=== PATIENT | male | born 1940 | race American Indian/Alaskan Native ===

== ENCOUNTER 2017-04-27 19:36 | Inpatient (IN) | payer MEDICARE ==
--- NOTE | 2017-04-27 20:59 | Emergency Department Report ---
ED Chest Pain HPI - General Chief Complaint: Chest Pain Stated Complaint: CHEST PAIN Time Seen by Provider: 04/27/17 20:55 Source: patient, EMS Mode of arrival: Stretcher Limitations: No Limitations - History of Present Illness Initial Comments: Patient is a 76-year-old male past medical history of coronary artery disease and known aortic aneurysm. Who presents with chest pain that is going on for the last couple of hours. Patient states the pain is 9 on 10. States it's located in the middle his chest it radiates his left arm. It is intermittent mapping makes it better or worse. Patient states achy type of pain. He states nothing he is done has relieved the pain. Patient states that he has seen his vascular surgeon and he supposed to get an operation one has aortic aneurysm approaches 5 cm. Patient states that he has no headache no fevers or chills. - Related Data Home Medications Medication Instructions Recorded Confirmed Last Taken Aspirin [Aspirin BABY CHEW TAB] 81 mg PO QDAY 07/05/13 02/03/14 02/02/14 Atenolol [Tenormin] 100 mg PO DAILY 07/05/13 02/03/14 02/02/14 Atorvastatin [Lipitor] 80 mg PO QHS 07/05/13 02/03/14 02/02/14 Furosemide [Lasix] 20 mg PO DAILY 07/05/13 02/03/14 02/02/14 Isosorbide Mononitrate [Isosorbide 60 mg PO DAILY 07/05/13 02/03/14 02/02/14 Mononitrate ER (IMDUR)] Losartan [Cozaar] 100 mg PO QDAY 07/05/13 02/03/14 02/02/14 Niacin [Niaspan] 500 mg PO DAILY 07/05/13 02/03/14 02/02/14 amLODIPine [Norvasc] 10 mg PO DAILY 07/05/13 02/03/14 02/02/14 Clopidogrel [Plavix] 75 mg PO QDAY 02/03/14 02/03/14 02/02/14 Previous Rx's Medication Instructions Recorded Last Taken Type Budesonide [Pulmicort Respules] 0.5 mg IH Q12HRT #60 nebu 02/09/14 Unknown Rx Famotidine [Pepcid] 40 mg PO QHS #30 tablet 02/09/14 Unknown Rx Ipratropium/Albuterol Sulfate 1 ampul IH Q6HRT #100 ampul.neb 02/09/14 Unknown Rx [DUONEB *Not for PRN Use*] Levofloxacin [Levaquin] 500 mg PO QDAY #7 tablet 02/09/14 Unknown Rx Potassium Chloride 10 meq PO QDAY #30 capsule.er 02/09/14 Unknown Rx Prednisone [predniSONE 10 mg 10 mg PO .TAPER #1 tab.ds.pk 02/09/14 Unknown Rx (6-Day Pack, 21 Tabs)] cloNIDine [Catapres] 0.1 mg PO BID #60 tablet 02/09/14 Unknown Rx Allergies Allergy/AdvReac Type Severity Reaction Status Date / Time No Known Allergies Allergy Verified 04/27/17 19:49 Heart Score - HEART Score History: Moderately suspicious EKG: Normal Age: > 65 Risk factors: > 3 risk factors or hx of atherosclerotic disease Troponin: < normal limit HEART Score: 5 - Critical Actions Critical Actions: 4-6 pts:12-16.6% risk of adverse cardiac event. Should be admitted ED Review of Systems ROS: Stated complaint: CHEST PAIN Other details as noted in HPI Constitutional: malaise Eyes: denies: eye pain, eye discharge, vision change ENT: denies: ear pain, throat pain Respiratory: denies: cough, shortness of breath, wheezing Cardiovascular: chest pain Endocrine: no symptoms reported Gastrointestinal: denies: abdominal pain, nausea, diarrhea Genitourinary: denies: urgency, dysuria Musculoskeletal: denies: back pain, joint swelling, arthralgia Skin: denies: rash, lesions Neurological: denies: headache, weakness, paresthesias Psychiatric: denies: anxiety, depression Hematological/Lymphatic: denies: easy bleeding, easy bruising ED Past Medical Hx - Past Medical History Previous Medical History?: Yes Hx Hypertension: Yes Hx CVA: Yes (2) Hx Heart Attack/AMI: Yes Hx Congestive Heart Failure: Yes Hx Arthritis: Yes 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 - Surgical History Past Surgical History?: Yes Hx Open Heart Surgery: Yes (1995) Hx Appendectomy: Yes Additional Surgical History: bladder surgery - Social History Smoking Status: Never Smoker Substance Use Type: None - Medications Home Medications: Home Medications Medication Instructions Recorded Confirmed Last Taken Type Aspirin [Aspirin BABY CHEW TAB] 81 mg PO QDAY 07/05/13 02/03/14 02/02/14 History Atenolol [Tenormin] 100 mg PO DAILY 07/05/13 02/03/14 02/02/14 History Atorvastatin [Lipitor] 80 mg PO QHS 07/05/13 02/03/14 02/02/14 History Furosemide [Lasix] 20 mg PO DAILY 07/05/13 02/03/14 02/02/14 History Isosorbide Mononitrate [Isosorbide 60 mg PO DAILY 07/05/13 02/03/14 02/02/14 History Mononitrate ER (IMDUR)] Losartan [Cozaar] 100 mg PO QDAY 07/05/13 02/03/14 02/02/14 History Niacin [Niaspan] 500 mg PO DAILY 07/05/13 02/03/14 02/02/14 History amLODIPine [Norvasc] 10 mg PO DAILY 07/05/13 02/03/14 02/02/14 History Clopidogrel [Plavix] 75 mg PO QDAY 02/03/14 02/03/14 02/02/14 History Budesonide [Pulmicort Respules] 0.5 mg IH Q12HRT #60 nebu 02/09/14 Unknown Rx Famotidine [Pepcid] 40 mg PO QHS #30 tablet 02/09/14 Unknown Rx Ipratropium/Albuterol Sulfate 1 ampul IH Q6HRT #100 ampul.neb 02/09/14 Unknown Rx [DUONEB *Not for PRN Use*] Levofloxacin [Levaquin] 500 mg PO QDAY #7 tablet 02/09/14 Unknown Rx Potassium Chloride 10 meq PO QDAY #30 capsule.er 02/09/14 Unknown Rx Prednisone [predniSONE 10 mg 10 mg PO .TAPER #1 tab.ds.pk 02/09/14 Unknown Rx (6-Day Pack, 21 Tabs)] cloNIDine [Catapres] 0.1 mg PO BID #60 tablet 02/09/14 Unknown Rx ED Physical Exam - General Limitations: No Limitations General appearance: alert, in no apparent distress - Head Head exam: Present: atraumatic, normocephalic - Eye Eye exam: Present: normal appearance - ENT ENT exam: Present: mucous membranes moist - Respiratory Respiratory exam: Present: normal lung sounds bilaterally. Absent: respiratory distress - Cardiovascular Cardiovascular Exam: Present: regular rate, systolic murmur - GI/Abdominal GI/Abdominal exam: Present: soft, normal bowel sounds - Rectal Rectal exam: Present: deferred - Extremities Exam Extremities exam: Present: normal inspection - Back Exam Back exam: Present: normal inspection - Neurological Exam Neurological exam: Present: alert, oriented X3 - Psychiatric Psychiatric exam: Present: normal affect, normal mood - Skin Skin exam: Present: warm, dry, intact, normal color. Absent: rash ED Course Vital Signs 04/27/17 04/27/17 04/27/17 19:52 21:38 22:00 Temperature 98.0 F 98.4 F Pulse Rate 106 H 86 70 Respiratory 17 21 14 Rate Blood Pressure 128/81 Blood Pressure 130/88 147/83 [Left] O2 Sat by Pulse 96 99 99 Oximetry 04/27/17 23:00 Temperature 97.8 F Pulse Rate 67 Respiratory 16 Rate Blood Pressure Blood Pressure 130/68 [Left] O2 Sat by Pulse 99 Oximetry - Reevaluation(s) Reevaluation #1: 04/27/17 23:15 Place patient's ultrasound-guided IV line successful. Patient will go to CT to get CT angiogram. - Procedure Description Procedures done: Ultrasound-guided IV indication inability to get vascular [place] V landmarks. IV inserted and left basilic vein for vascular access procedure was successful. Patient gave verbal consent site was cleaned. IV able to flush. At 1:[address] second IV in left antecubital fossa using ultrasound used to attempts. IV access blew. Placement is successful BHARAT score - Bharat Score Age > 65: (1) Yes Aspirin use within the Past 7 Days: (1) Yes 3 or more CAD Risk Factors: (1) Yes 2 or more Angina events in past 24 hrs: (1) Yes Known CAD with more than 50% Stenosis: (1) Yes Elevated Cardiac Markers: (0) No ST Deviation Greater than 0.5mm: (0) No BHARAT Score: 5 ED Medical Decision Making - Lab Data Result diagrams: 04/27/17 23:54 04/27/17 23:54 Laboratory Results - last 24 hr 04/27/17 20:51 WBC 8.2 RBC 4.38 Hgb 13.4 Hct 40.9 MCV 93 MCH 31 MCHC 33 RDW 15.4 H Plt Count 162 Lymph % (Auto) 15.0 [place] % (Auto) 9.0 H Eos % (Auto) 2.3 Baso % (Auto) 0.7 Lymph # 1.2 [place] # 0.7 Eos # 0.2 Baso # 0.1 Seg Neutrophils % 73.0 H Seg Neutrophils # 6.0 Laboratory Results - last 24 hr 04/27/17 04/27/17 04/27/17 20:51 20:51 23:08 WBC 8.2 RBC 4.38 Hgb 13.4 Hct 40.9 MCV 93 MCH 31 MCHC 33 RDW 15.4 H Plt Count 162 Lymph % (Auto) 15.0 [place] % (Auto) 9.0 H Eos % (Auto) 2.3 Baso % (Auto) 0.7 Lymph # 1.2 [place] # 0.7 Eos # 0.2 Baso # 0.1 Seg Neutrophils % 73.0 H Seg Neutrophils # 6.0 Sodium 146 H Potassium 3.5 L Chloride 104.7 Carbon Dioxide 25 Anion Gap 20 BUN 13 Creatinine 1.1 Estimated GFR > 60 BUN/Creatinine Ratio 11.81 Glucose 98 Calcium 8.6 Troponin T < 0.010 < 0.010 04/27/17 04/27/17 23:54 23:54 WBC 8.4 RBC 4.29 Hgb 13.1 Hct 39.9 MCV 93 MCH 31 MCHC 33 RDW 16.0 H Plt Count 150 Lymph % (Auto) 17.2 [place] % (Auto) 9.8 H Eos % (Auto) 2.8 Baso % (Auto) 0.9 Lymph # 1.4 [place] # 0.8 Eos # 0.2 Baso # 0.1 Seg Neutrophils % 69.3 Seg Neutrophils # 5.8 Sodium 145 Potassium 3.8 Chloride 105.7 Carbon Dioxide 27 Anion Gap 16 BUN 14 Creatinine 0.9 Estimated GFR > 60 BUN/Creatinine Ratio 15.55 Glucose 97 Calcium 8.6 Troponin T - EKG Data 04/27/17 21:21 EKG shows normal sinus rhythm left axis deviation no ST segment elevations or T- wave inversions. - Radiology Data Radiology results: pending - Medical Decision Making Medical diagnosis Critical care attestation.: If time is entered above; I have spent that time in minutes in the direct care of this critically ill patient, excluding procedure time. ED Disposition Clinical Impression: CAD (coronary artery disease) Qualifiers: Coronary Disease-Associated Artery/Lesion type: unspecified vessel or lesion type [place] vs. transplanted heart: unspecified whether [place] or transplanted heart Associated angina: with unspecified angina Qualified Code(s): I25.119 - Atherosclerotic heart disease of [place] coronary artery with unspecified angina pectoris Chest pain Qualifiers: Chest pain type: intercostal pain Qualified Code(s): R07.82 - Intercostal pain Disposition: -09 OP ADMIT IP TO THIS HOSP Is pt being admited?: Yes Does the pt Need Aspirin: No Condition: Stable
[2017-04-27] MEDS ORDERED: NACL ONE ×2 (21:09→23:29)
[2017-04-27 21:19] LABS: Basophils % (Auto) 0.7 % (0.0-1.8); Eosinophils % (Auto) 2.3 % (0.0-4.3); Hematocrit 40.9 % (35.5-45.6); Hemoglobin 13.4 gm/dl (11.8-15.2); Mean Corpuscular HGB Conc 33 % (32-34); Mean Corpuscular Hemoglobin 31 pg (28-32); Mean Corpuscular Volume 93 fl (84-94); Platelet Count 162 K/mm3 (140-440); Red Blood Count 4.38 M/mm3 (3.65-5.03); Red Cell Distribution Width 15.4 % (13.2-15.2); White Blood Count 8.2 K/mm3 (4.5-11.0)
[2017-04-27 21:29] LABS: BUN/Creatinine Ratio 11.81; Blood Urea Nitrogen 13 mg/dL (9-20); Calcium 8.6 mg/dL (8.4-10.2); Carbon Dioxide 25 mmol/L (22-30); Glucose 98 mg/dL (75-100)
[2017-04-27 21:30] LABS: Anion Gap 20 mmol/L; Chloride 104.7 mmol/L (98-107); Potassium 3.5 mmol/L (3.6-5.0); Sodium 146 mmol/L (137-145)
--- NOTE | 2017-04-27 23:43 | History and Physical Report ---
History of Present Illness Chief complaint: My chest hurts History of present illness: 76 YO Male with CAD S/P CABG, COPD, CHF, HTN, HLD, Nicotine Dependence, Aortic Aneurysm(4.7cm) presents to ED for evaluation. Pt states that he has experienced chest pain for the past 1day, with worsening symptoms over the past 2 hours. Pain is 9/10, substernal, radiates to his left arm, no exacerbating of alleviating factors. Pt denies fever, chills, back pain, syncope, difficulty breathing, productive cough, recent ill contacts. Patient states that he has seen his vascular surgeon and that his AAA in currently being monitored and pending intervention when aneurysm approaches 5 cm. Past History Past Medical History: CAD, COPD, heart failure, hypertension, hyperlipidemia Past Surgical History: appendectomy, CABG, Other (bladder surgery) Social history: , lives with family, smoking. denies: alcohol abuse, prescription drug abuse, IV drug use Family history: CAD, hypertension Medications and Allergies Allergies Allergy/AdvReac Type Severity Reaction Status Date / Time No Known Allergies Allergy Verified 04/27/17 19:49 Home Medications Medication Instructions Recorded Confirmed Last Taken Type Aspirin [Aspirin BABY CHEW TAB] 81 mg PO QDAY 07/05/13 02/03/14 02/02/14 History Atenolol [Tenormin] 100 mg PO DAILY 07/05/13 02/03/14 02/02/14 History Atorvastatin [Lipitor] 80 mg PO QHS 07/05/13 02/03/14 02/02/14 History Furosemide [Lasix] 20 mg PO DAILY 07/05/13 02/03/14 02/02/14 History Isosorbide Mononitrate [Isosorbide 60 mg PO DAILY 07/05/13 02/03/14 02/02/14 History Mononitrate ER (IMDUR)] Losartan [Cozaar] 100 mg PO QDAY 07/05/13 02/03/14 02/02/14 History Niacin [Niaspan] 500 mg PO DAILY 07/05/13 02/03/14 02/02/14 History amLODIPine [Norvasc] 10 mg PO DAILY 07/05/13 02/03/14 02/02/14 History Clopidogrel [Plavix] 75 mg PO QDAY 02/03/14 02/03/14 02/02/14 History Budesonide [Pulmicort Respules] 0.5 mg IH Q12HRT #60 nebu 02/09/14 Unknown Rx Famotidine [Pepcid] 40 mg PO QHS #30 tablet 02/09/14 Unknown Rx Ipratropium/Albuterol Sulfate 1 ampul IH Q6HRT #100 ampul.neb 02/09/14 Unknown Rx [DUONEB *Not for PRN Use*] Levofloxacin [Levaquin] 500 mg PO QDAY #7 tablet 02/09/14 Unknown Rx Potassium Chloride 10 meq PO QDAY #30 capsule.er 02/09/14 Unknown Rx Prednisone [predniSONE 10 mg 10 mg PO .TAPER #1 tab.ds.pk 02/09/14 Unknown Rx (6-Day Pack, 21 Tabs)] cloNIDine [Catapres] 0.1 mg PO BID #60 tablet 02/09/14 Unknown Rx Review of Systems All systems: negative Constitutional: no weight loss Ears, nose, mouth and throat: no ear pain Cardiovascular: chest pain Respiratory: no cough with sputum Gastrointestinal: no abdominal pain Genitourinary Male: no dysuria, no discharge Rectal: no pain Musculoskeletal: no neck stiffness Integumentary: no rash Neurological: no seizures Psychiatric: no anxiety Endocrine: no cold intolerance Hematologic/Lymphatic: no easy bruising Allergic/Immunologic: no urticaria Exam - Constitutional Vitals: Temp Pulse Resp BP Pulse Ox 98.0 F 86 21 130/88 99 04/27/17 21:38 04/27/17 21:38 04/27/17 21:38 04/27/17 21:38 04/27/17 21:38 General appearance: Present: mild distress - EENT Eyes: Present: PERRL ENT: hearing intact, clear oral mucosa - Neck Neck: Present: supple, normal ROM - Respiratory Respiratory effort: normal Respiratory: bilateral: CTA - Cardiovascular Heart Sounds: Present: S1 & S2. Absent: rub, click - Extremities Extremities: pulses symmetrical, No edema Peripheral Pulses: within normal limits - Abdominal General gastrointestinal: Present: soft, non-tender, non-distended, normal bowel sounds Male genitourinary: Present: normal - Integumentary Integumentary: Present: clear, warm, dry - Musculoskeletal Musculoskeletal: gait normal, strength equal bilaterally - Psychiatric Psychiatric: appropriate mood/affect, intact judgment & insight - Neurologic Neurologic: CNII-XII intact, moves all extremities Results - Labs CBC & Chem 7: 04/27/17 23:54 04/27/17 23:54 Labs: Abnormal lab results 04/27/17 04/27/17 Range/Units 20:51 20:51 RDW 15.4 H (13.2-15.2) % [place] % (Auto) 9.0 H (0.0-7.3) % Seg Neutrophils % 73.0 H (40.0-70.0) % Sodium 146 H (137-145) mmol/L Potassium 3.5 L (3.6-5.0) mmol/L Assessment and Plan - Patient Problems (1) ACS (acute coronary syndrome) Current Visit: Yes Status: Acute Plan to address problem: Serial cardiac enzymes, ekg, telemetry, ddimer, supportive care, echo, stress test, cardiology consulted. (2) CHF (congestive heart failure) Current Visit: Yes Status: Acute Qualifiers: Congestive heart failure type: C Congestive heart failure chronicity: acute on chronic Plan to address problem: Admit to telemetry, afterload reduction, fluid restriction, monitor uop q shift , resume home medication. (3) CAD (coronary artery disease) Current Visit: Yes Status: Acute Qualifiers: Coronary Disease-Associated Artery/Lesion type: C [place] vs. transplanted heart: N Associated angina: with stable angina Plan to address problem: continue medical management, telemetry monitoring, (4) Nicotine dependence Current Visit: Yes Status: Acute Qualifiers: Nicotine product type: N Substance use status: S Plan to address problem: Pt declines to pick quit date, supportive care. Pt counseled (5) AAA (abdominal aortic aneurysm) Current Visit: Yes Status: Acute Qualifiers: Presence of rupture: P Plan to address problem: CTA chest, serial physical exam. (6) HLD (hyperlipidemia) Current Visit: No Status: Chronic Qualifiers: Hyperlipidemia type: H Plan to address problem: continue statin therapy, low cholesterol diet (7) HTN (hypertension) Current Visit: No Status: Chronic Qualifiers: Hypertension type: H Plan to address problem: monitor bp q shift, resume home medication (8) DVT prophylaxis Current Visit: Yes Status: Acute
[2017-04-27] MEDS ORDERED: PROVENTIL IH PRN (23:44)
[2017-04-27] MEDS ORDERED: TYLENOL PO PRN (23:44)
[2017-04-27] MEDS ORDERED: SODIUM CHLORIDE FLUSH SYRINGE 10 ML IV PRN (23:44)
[2017-04-28 00:11] LABS: Basophils % (Auto) 0.9 % (0.0-1.8); Eosinophils % (Auto) 2.8 % (0.0-4.3); Hematocrit 39.9 % (35.5-45.6); Hemoglobin 13.1 gm/dl (11.8-15.2); Mean Corpuscular HGB Conc 33 % (32-34); Mean Corpuscular Hemoglobin 31 pg (28-32); Mean Corpuscular Volume 93 fl (84-94); Platelet Count 150 K/mm3 (140-440); Red Blood Count 4.29 M/mm3 (3.65-5.03); White Blood Count 8.4 K/mm3 (4.5-11.0)
[2017-04-28 00:29] LABS: BUN/Creatinine Ratio 15.55; Blood Urea Nitrogen 14 mg/dL (9-20); Calcium 8.6 mg/dL (8.4-10.2); Carbon Dioxide 27 mmol/L (22-30); Glucose 97 mg/dL (75-100)
[2017-04-28 00:30] LABS: Anion Gap 16 mmol/L; Chloride 105.7 mmol/L (98-107); Potassium 3.8 mmol/L (3.6-5.0); Sodium 145 mmol/L (137-145)
[2017-04-28 02:13] LABS: Cholesterol 132 mg/dL (50-199); HDL Cholesterol 57 mg/dL (40-59); LDL Cholesterol,Direct 56 mg/dL (50-130); Triglycerides 97 mg/dL (2-149)
--- NOTE | 2017-04-28 04:24 | Admit Criteria Form ---
Admission Criteria Documentation: CHEST PAIN Clinical Indications for Admission to Inpatient Care (Place 'X' for any and all applicable criteria): Admission is indicated for chest pain and ANY ONE of the following(1)(2)(3)(4)(5 ): [ ]I. Angina with acute coronary syndrome (Also use Myocardial Infarction or Angina guideline) [ ]II. Hemodynamic instability [ ]III. Angina needing acute intervention as indicated by ALL of the following( 11)(12): [ ]a) Unstable angina is present as indicated by angina that is ANY ONE of the following: [ ]i) New onset [ ]ii) Nocturnal [ ]iii) Prolonged at rest [ ]iv) Progressive [ ]b) Angina warrants acute intervention as indicated by ANY ONE of the following: [ ]i) Recurrent angina (e.g, not responding as previously to treatment) [ ]ii) Angina at rest or with low-level activities despite initial medical therapy [ ]iii) New or presumably new ST-segment depression on ECG [ ]iv) Signs or symptoms of heart failure (eg, dyspnea, pulmonary edema) [ ]v) New or worsening mitral regurgitation [ ]vi) Hemodynamic instability [ ]vii) Dangerous arrhythmia (eg, sustained ventricular tachycardia) [ ]viii) History of percutaneous coronary intervention within 6 months [ ]ix) History of coronary artery bypass graft surgery [ ]x) BHARAT risk score of 2 or greater[A] [ ]xi) History of Diabetes(14) [ ]xii) High-risk cardiac ischemia findings on noninvasive testing (e.g, echocardiogram, treadmill testing, nuclear scan) [ ]xiii) Chronic renal insufficiency (ie, estimated GFR less than 60 mL/min/1.732m) [ ]xiv) Left ventricular ejection fraction less than 40% [ ]IV. Evidence of AR (eg, cardiac biomarkers positive, ST-segment elevation on ECG) also use Myocardial Infarction Criteria Form. [ ]V. Pulmonary edema [ ]. Respiratory distress [ ]VII. Chest pain indicative of serious diagnosis other than coronary artery disease (eg, aortic dissection) [ ]VIII. Contraindications and/or Inappropriate clinical situations for Observational Care in patients with Chest Pain, when ANY ONE of the following is required: [ ]a) Patient with risk factor for pulmonary embolism, acute coronary syndrome and myocardial infarction (18) [ ]b) Patient with Pulmonary embolism require an average LOS of 4.3 days, therefore emergency department observation management is inappropriate 18,23 [ ]c) Painful condition/s in the elderly, have the highest rate of recidivism after emergency department observation management (10.8%) 20,21,22 [ ]d) Elevated cardiac biomarker requires intensive and exhaustive care (19) [X ]IX. General contraindications and/or Inappropriate clinical situations for Observational Care in patients with Chest Pain, when ANY ONE of the following is required: [ X]a) Prediction of prolongation of LOS based on ANY ONE of the following may be considered as a contraindication for observational care 2, 3, 4, 5, 6, 7, 8, 9, 10, 11 [X ]i) Age > 65 yrs. [ ]ii) Patient arriving by ambulance [ ]iii) Patient with high acuity [ ]iv) Patient requiring vital sign monitoring [ X]v) Patient on IV medication [ ]b) Systolic blood pressures 180mmHg 3,12 [ ]c) Patient with altered mental status including delirium and other alteration of consciousness, (3) [ ]d) Patient whose discharge disposition will be to a fdc home or rehabilitation home should not be managed in Emergency Department Observation Unit. CMS rule requires 3 days hospital stay before such placement. 3,13 [ ]e) Patient with failure to thrive due to broad array of etiologies 3,16,17 [ ]f) Inability to ambulate 3,14 Extended stay beyond goal length of stay may be needed for (1)(28): [ ]a) Specific condition diagnosed after evaluation (eg, pulmonary embolism, aortic dissection) [ ]b) Unstable angina [ ]c) Continued suspicion of acute coronary syndrome with inability to complete needed cardiac evaluation (eg, patient clinically unable to undergo stress testing) [ ]d) Myocardial infarction (Contents from ANGINA and CHEST PAIN clinical indications for admission to inpatient care have been integrated in this form) The original [employer] content created by [employer] has been revised. The portions of the content which have been revised are identified through the use of italic text or in bold, and [email or web address] has neither reviewed nor approved the modified material. All other unmodified content is copyright [employer]. Please see references footnoted in the original [facility] edition 2016 Admission Criteria Met: Yes
[2017-04-28] MEDS: PERCOCET 5/325 PO PRN (06:56)
--- NOTE | 2017-04-28 12:18 | Consultation ---
History of Present Illness Consult date: 04/28/17 Requesting physician: ERROL ARTEAGA Consult reason: chest pain History of present illness: The pt is a 76 YO male with a past medical history significant for CAD, s/p CABG x 2 in 1996, CVA x 2 (1973 and 1998), bradycardia s/p PPM (2014), COPD ( wears 2L O2 via NC during the night), HTN, HLP, abdominal aortic aneurysm (most recent CTA showed 4.7 cm aneurysm with an endoleak), EVAR in 2012, PAD, former tobacco smoker (quit 3 years ago). He is previously unknown to our practice. He is regularly followed by Dr. Darlin Mg with [facility]. 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 He describes this pain as an intermittent, nonexertional midsternal and left-sided aching pain which sometimes radiates into his left shoulder and into left arm. Prior to admission, the pain was somewhat relieved by SL nitroglycerin. On the day of admission, the pt reports that he had an episode of chest pain which was not alleviated by 3 SL nitro tabs and thus he called EMS. The pain is sometimes associated with nausea. He denies any palpitations, SOB above baseline, vomiting , diaphoresis, dizziness, or syncope. Echo done 12/2010 showed EF 55-60%, impaired relaxation. LHC done 12/2010 showed patent MOYER graft, graft supplying the coronary territory consisting of the circumflex coronary artery, obtuse marginal branches, left posterior descending artery, and left posterolateral branch has 100 % stenosis at the ostial segment; this graft is a saphenous vein graft; medical therapy was recommended. Past History Past Medical History: CAD, COPD, hypertension, hyperlipidemia, PVD Past Surgical History: appendectomy, CABG, Other (bladder surgery) Social history: , lives with family, smoking (former). denies: alcohol abuse, prescription drug abuse, IV drug use Family history: CAD, hypertension Medications and Allergies Allergies Allergy/AdvReac Type Severity Reaction Status Date / Time No Known Allergies Allergy Verified 04/27/17 19:49 Home Medications Medication Instructions Recorded Confirmed Last Taken Type Aspirin [Aspirin BABY CHEW TAB] 81 mg PO QDAY 07/05/13 04/28/17 1 Day Ago History Atenolol [Tenormin] 100 mg PO DAILY 07/05/13 04/28/17 1 Day Ago History Atorvastatin [Lipitor] 80 mg PO QHS 07/05/13 04/28/17 1 Day Ago History Furosemide [Lasix] 20 mg PO DAILY 07/05/13 04/28/17 1 Day Ago History Isosorbide Mononitrate [Isosorbide 60 mg PO DAILY 07/05/13 04/28/17 1 Day Ago History Mononitrate ER (IMDUR)] Losartan [Cozaar] 100 mg PO QDAY 07/05/13 04/28/17 1 Day Ago History Niacin [Niaspan] 500 mg PO DAILY 07/05/13 04/28/17 1 Day Ago History amLODIPine [Norvasc] 10 mg PO DAILY 07/05/13 04/28/17 2 Days Ago History Clopidogrel [Plavix] 75 mg PO QDAY 02/03/14 04/28/17 1 Day Ago History Budesonide [Pulmicort Respules] 0.5 mg IH Q12HRT #60 nebu 02/09/14 04/28/17 1 Day Ago Rx Famotidine [Pepcid] 40 mg PO QHS #30 tablet 02/09/14 04/28/17 1 Day Ago Rx Ipratropium/Albuterol Sulfate 1 ampul IH Q6HRT #100 ampul.neb 02/09/14 04/28/17 1 Day Ago Rx [DUONEB *Not for PRN Use*] Potassium Chloride 10 meq PO QDAY #30 capsule.er 02/09/14 04/28/17 1 Day Ago Rx cloNIDine [Catapres] 0.1 mg PO BID #60 tablet 02/09/14 04/28/17 2 Days Ago Rx Active Meds: Active Medications Acetaminophen (Tylenol) 650 mg PO Q4H PRN PRN Reason: Pain MILD(1-3)/Fever >100.5/MOTA Last Admin: 04/28/17 00:18 Dose: 650 mg Albuterol (Proventil) 2.5 mg IH Q4HRT PRN PRN Reason: Shortness Of Breath Morphine Sulfate (Morphine) 2 mg IV Q4H PRN PRN Reason: Pain, Moderate (4-6) Oxycodone/Acetaminophen (Percocet 5/325) 1 tab PO Q8H PRN PRN Reason: Pain, Moderate (4-6) Last Admin: 04/28/17 06:56 Dose: 1 tab Sodium Chloride (Sodium Chloride Flush Syringe 10 Ml) 10 ml IV PRN PRN PRN Reason: LINE FLUSH Review of Systems Constitutional: no weight loss, no weight gain, no fever, no chills, no sweats Ears, nose, mouth and throat: no ear pain, no nose pain, no sinus pressure, no sinus pain Cardiovascular: chest pain, shortness of breath (chronic), dyspnea on exertion ( chronic), high blood pressure, no orthopnea, no palpitations, no rapid/ irregular heart beat, no edema, no syncope, no lightheadedness, no paroxysmal nocturnal dyspnea, no leg edema Respiratory: shortness of breath, dyspnea on exertion, no cough, no congestion, no wheezing, no pain on inspiration Gastrointestinal: nausea, no abdominal pain, no vomiting, no diarrhea, no constipation, no change in bowel habits Genitourinary Male: no dysuria, no hematuria, no flank pain, no discharge, no urinary frequency, no urinary hesitancy Musculoskeletal: no neck stiffness, no neck pain, no shooting arm pain, no arm numbness/tingling, no low back pain, no shooting leg pain, no leg numbness/ tingling, no redness of joints Integumentary: no rash, no pruritis, no redness, no sores, no wounds Neurological: no head injury, no paralysis, no weakness, no parathesias, no numbness, no tingling, no seizures, no syncope Psychiatric: no anxiety Endocrine: no cold intolerance, no heat intolerance Hematologic/Lymphatic: no easy bruising, no easy bleeding, no lymphadenopathy Allergic/Immunologic: no urticaria, no wheezing Physical Examination Vital Signs Pulse Resp BP Pulse Ox 106 H 17 128/81 96 04/27/17 19:52 04/27/17 19:52 04/27/17 19:52 04/27/17 19:52 General appearance: no acute distress HEENT: Positive: PERRL, Normocephaly, Mucus Membranes Moist Neck: Positive: neck supple, trachea midline Cardiac: Positive: Reg Rate and Rhythm, S1/S2 Lungs: Positive: Decreased Breath Sounds, Wheezes (fine expiratory), Other ( prolonged expiration) Neuro: Positive: Grossly Intact, Cranial Nerve 2-12 Intact Abdomen: Positive: Unremarkable, Soft, Active Bowel Sounds. Negative: Tender Skin: Positive: Clear. Negative: Rash, Wound Musculoskeletal: No Fluid Collection, No Pain, Normal Range of Motion Extremities: Absent: edema Results 04/27/17 23:54 04/27/17 23:54 Lipids 04/27/17 Range/Units 23:54 Triglycerides 97 (2-149) mg/dL Cholesterol 132 (50-199) mg/dL HDL Cholesterol 57 (40-59) mg/dL Cholesterol/HDL Ratio 2.31 % CBC 04/27/17 Range/Units 23:54 WBC 8.4 (4.5-11.0) K/mm3 RBC 4.29 (3.65-5.03) M/mm3 Hgb 13.1 (11.8-15.2) gm/dl Hct 39.9 (35.5-45.6) % Plt Count 150 (140-440) K/mm3 Lymph # 1.4 (1.2-5.4) K/mm3 [place] # 0.8 (0.0-0.8) K/mm3 Eos # 0.2 (0.0-0.4) K/mm3 Baso # 0.1 (0.0-0.1) K/mm3 Comprehensive Metabolic Panel 04/27/17 Range/Units 23:54 Sodium 145 (137-145) mmol/L Potassium 3.8 (3.6-5.0) mmol/L Chloride 105.7 (98-107) mmol/L Carbon Dioxide 27 (22-30) mmol/L BUN 14 (9-20) mg/dL Creatinine 0.9 (0.8-1.5) mg/dL Glucose 97 (75-100) mg/dL Calcium 8.6 (8.4-10.2) mg/dL - Imaging and Cardiology Echo: pending, report reviewed Cardiac cath: report reviewed EKG: report reviewed, image reviewed EKG interpretations - Telemetry EKG Rhythm: Sinus Rhythm - EKG Sinus rhythms and dysrhythmias: sinus rhythm Assessment and Plan Assessment: Chest pain, atypical - ECG with NAF; Sia negative for AMI. CAD, s/p CABG x 2 in 1996 PPM in situ Abdominal aortic aneurysm - most recent CTA showed 4.7 cm aneurysm with an endoleak; s/p EVAR in 2012 HTN HLP COPD H/o CVA PAD Plan: Obtain echo. Await chest and abdomen CTA once IV access is obtained. Resume home ASA 81, lipitor, norvasc, lasix, & imdur. Recommend resuming home plavix pending no surgical intervention of abdominal aortic aneurysm is required. 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 Will resume Toprol XL (as substitute for bystolic as bystolic is not on formulary at this facility). Plan for lexiscan MPI stress test in AM pending pt remains clinically and hemodynamically stable overnight. NPO after MN. Cont tele. Assessment and plan reviewed with pt and pt's at bedside. The patient has been seen in conjunction with Dr. Galaviz who agrees with the assessment and plan of care.
--- NOTE | 2017-04-28 15:27 | Progress Note ---
Assessment and Plan Assessment and plan: 76 YO Male with CAD S/P CABG, COPD, CHF, HTN, HLD, Nicotine Dependence, Aortic Aneurysm(4.7cm) presents to ED for evaluation. Pt states that he has experienced chest pain for the past 1day, with worsening symptoms over the past 2 hours. Pain is 9/10, substernal, radiates to his left arm, no exacerbating of alleviating factors. Pt denies fever, chills, back pain, syncope, difficulty breathing, productive cough, recent ill contacts. Patient states that he has seen his vascular surgeon and that his AAA in currently being monitored and pending intervention when aneurysm approaches 5 cm. * Atypical chest pain * Nicotine dependence * Dyslipidemia * CAD, s/p CABG x 2 in 1996 * Chronic hypoxemia * PPM in situ * Abdominal aortic aneurysm - most recent CTA showed 4.7 cm aneurysm with an endoleak; s/p EVAR in 2012 * HTN * HLCOPD * H/o CVA * PAD Plan: * Continue supportive care, oxygen- no increase need noted * Stress test in AM, Echocardiogram pending * Await CTA abdomen and Pelvis. IV access established * Vascular consult * Cardiology input * Continue home meds ASA 81, lipitor, Toprol xl, norvasc, lasix, & imdur. * Plan discussed with rag sorter * Plan discussed with patient in detail. * DVT/GI prophylaxis History Interval history: Patient seen and examined this morning and reports some improvement in the chest pain. Reports chest pain has been on and off for about 2 weeks now. Although I'll follow questioning states that it has been going in for months but got worse in the last 2 weeks. Today he denies any aggravating or alleviating factors. Hospitalist Physical - Physical exam Narrative exam: VITAL SIGNS: Reviewed. GENERAL: The patient appeared chronically ill appearing otherwise normally developed. Vital signs as documented. HEAD: No signs of head trauma. EYES: Pupils are equal. Extraocular motions intact. EARS: Hearing grossly intact. MOUTH: Oropharynx is normal. NECK: No adenopathy, no JVD. CHEST: Chest with diminished breath sounds bilaterally. No wheezes, rales, or rhonchi. CARDIAC: Regular rate and rhythm. S1 and S2, without murmurs, gallops, or rubs. VASCULAR: No Edema. Peripheral pulses normal and equal in all extremities. ABDOMEN: Soft, without detectable tenderness. No sign of distention. No rebound or guarding, and no masses palpated. Bowel Sounds normal. MUSCULOSKELETAL: Good range of motion of all major joints. Extremities without clubbing, cyanosis or edema. NEUROLOGIC EXAM: Alert and oriented x 3. No focal sensory or strength deficits. Speech normal. Follows commands. PSYCHIATRIC: Mood normal. SKIN: No rash or lesions. - Constitutional Vitals: Temp Pulse Resp BP Pulse Ox 98.2 F 70 20 140/84 99 04/28/17 11:40 04/28/17 11:50 04/28/17 11:50 04/28/17 11:40 04/28/17 11:50 General appearance: Present: no acute distress Results - Labs CBC & Chem 7: 04/27/17 23:54 04/27/17 23:54 Labs: Laboratory Last Values WBC 8.4 K/mm3 (4.5-11.0) 04/27/17 23:54 RBC 4.29 M/mm3 (3.65-5.03) 04/27/17 23:54 Hgb 13.1 gm/dl (11.8-15.2) 04/27/17 23:54 Hct 39.9 % (35.5-45.6) 04/27/17 23:54 MCV 93 fl (84-94) 04/27/17 23:54 MCH 31 pg (28-32) 04/27/17 23:54 MCHC 33 % (32-34) 04/27/17 23:54 RDW 16.0 % (13.2-15.2) H 04/27/17 23:54 Plt Count 150 K/mm3 (140-440) 04/27/17 23:54 Lymph % (Auto) 17.2 % (13.4-35.0) 04/27/17 23:54 [place] % (Auto) 9.8 % (0.0-7.3) H 04/27/17 23:54 Eos % (Auto) 2.8 % (0.0-4.3) 04/27/17 23:54 Baso % (Auto) 0.9 % (0.0-1.8) 04/27/17 23:54 Lymph # 1.4 K/mm3 (1.2-5.4) 04/27/17 23:54 [place] # 0.8 K/mm3 (0.0-0.8) 04/27/17 23:54 Eos # 0.2 K/mm3 (0.0-0.4) 04/27/17 23:54 Baso # 0.1 K/mm3 (0.0-0.1) 04/27/17 23:54 Seg Neutrophils % 69.3 % (40.0-70.0) 04/27/17 23:54 Seg Neutrophils # 5.8 K/mm3 (1.8-7.7) 04/27/17 23:54 Sodium 145 mmol/L (137-145) 04/27/17 23:54 Potassium 3.8 mmol/L (3.6-5.0) 04/27/17 23:54 Chloride 105.7 mmol/L (98-107) 04/27/17 23:54 Carbon Dioxide 27 mmol/L (22-30) 04/27/17 23:54 Anion Gap 16 mmol/L 04/27/17 23:54 BUN 14 mg/dL (9-20) 04/27/17 23:54 Creatinine 0.9 mg/dL (0.8-1.5) 04/27/17 23:54 Estimated GFR > 60 ml/min 04/27/17 23:54 BUN/Creatinine Ratio 15.55 % 04/27/17 23:54 Glucose 97 mg/dL (75-100) 04/27/17 23:54 Calcium 8.6 mg/dL (8.4-10.2) 04/27/17 23:54 Troponin T < 0.010 ng/mL (0.00-0.029) 04/28/17 05:54 Triglycerides 97 mg/dL (2-149) 04/27/17 23:54 Cholesterol 132 mg/dL (50-199) 04/27/17 23:54 LDL Cholesterol Direct 56 mg/dL (50-130) 04/27/17 23:54 HDL Cholesterol 57 mg/dL (40-59) 04/27/17 23:54 Cholesterol/HDL Ratio 2.31 % 04/27/17 23:54
--- NOTE | 2017-04-28 15:33 | Event Note ---
Date: 04/28/17 Consulted for aortic aneurysm. CTA pending. Will see the pt once the studies have been completed.
[2017-04-28] MEDS ORDERED: NACL ONE (15:39)
--- NOTE | 2017-04-28 16:55 | Cat Scan Report ---
CTA chest: Patient with known abdominal aortic aneurysm with endograft leakage. Previous exam at [place] approximately one year ago. No treatment. Also complains of slightly worsening chest pain over the past year. The patient does have long-standing hypertension. Following injection of IV contrast transverse sections are obtained through the chest and portions of the abdomen with coronal and sagittal 2-D reformatted images. Both lobes of the thyroid gland are diffusely inhomogeneous with probable nodules. There is mild shotty adenopathy in the mediastinum. No hilar adenopathy. The central airways are patent. No endobronchial lesions identified in the visualized airways. The lungs are clear of any obvious nodule or infiltrate in the pleural surfaces are smooth. The pulmonary vessels are well-opacified. There are no intraluminal filling defects identified. The thoracic aorta is well-opacified. The ascending aorta measures 4.2 cm in diameter which is abnormal. The descending aorta measures 3 cm which is at the upper limits of normal. The celiac and SMA arteries are both the aneurysm patent. The single renal arteries on each side are also patent. The upper stent inserts at the level of the renal arteries with bilateral insertions at the distal common iliac arteries. The aneurysm extends to just below the renal arteries to the bifurcation. Just above the bifurcation there is an endoleak and the transverse diameter of the aorta at this level may be as large as 5.3 cm. There are numerous bilateral large renal cysts. The largest cyst is in the right kidney measuring 7.7 cm and on the left the largest is 5.2 cm. Both kidneys function with no obvious obstruction. Impressions: 1. Patulous ascending and descending thoracic aorta which are in the aneurysmal range. 2. Leaking endograft. The maximum size of the abdominal aorta may have enlarged since prior exam where the patient describes it as measuring 3.7 cm. 3. Large bilateral renal cysts. The patient is unaware of this finding previously.
[2017-04-28] MEDS: BABY ASPIRIN PO SCH (18:41)
[2017-04-28] MEDS: NORVASC PO SCH (18:42)
[2017-04-28] MEDS: LASIX PO SCH (18:42)
[2017-04-28] MEDS: IMDUR PO SCH (18:42)
[2017-04-28] MEDS: TOPROL XL PO SCH (22:08)
[2017-04-28] MEDS: MORPHINE IV PRN (22:10)
[2017-04-29] MEDS: MORPHINE IV PRN (07:38)
[2017-04-29 08:52] LABS: Anion Gap 18 mmol/L; BUN/Creatinine Ratio 11.66; Blood Urea Nitrogen 14 mg/dL (9-20); Calcium 8.2 mg/dL (8.4-10.2); Carbon Dioxide 23 mmol/L (22-30); Chloride 106.5 mmol/L (98-107); Glucose 103 mg/dL (75-100); Potassium 5.3 mmol/L (3.6-5.0); Sodium 142 mmol/L (137-145)
[2017-04-29] MEDS ORDERED: LEXISCAN IV ONE ×2 (09:57→10:00)
--- NOTE | 2017-04-29 11:35 | Progress Note ---
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 transplanted heart: craig heart Associated angina: with stable angina Qualified Code(s): I25.118 - Atherosclerotic heart disease of craig coronary artery with other forms of angina pectoris (3) Chest pain Current Visit: Yes Status: Chronic Qualifiers: Chest pain type: intercostal pain Ischemic chest pain type: I Qualified Code(s): R07.82 - Intercostal pain (4) HLD (hyperlipidemia) Current Visit: No Status: Chronic Qualifiers: Hyperlipidemia type: H (5) HTN (hypertension) Current Visit: No Status: Chronic Qualifiers: Hypertension type: essential hypertension Qualified Code(s): I10 - Essential (primary) hypertension (6) Hx of CABG Current Visit: No Status: Chronic (7) Pulmonary hypertension Current Visit: No Status: Chronic Subjective Date of service: 04/29/17 Principal diagnosis: chest pain Interval history: pt has no chest pain today Objective Vital Signs Temp Pulse Pulse Resp BP Pulse Ox 04/29/17 10:00 60 20 98 04/29/17 08:30 97.5 F L 60 20 121/66 98 04/29/17 08:07 60 04/29/17 05:47 97.6 F 64 19 100/66 96 04/29/17 02:00 74 04/29/17 00:58 97.4 F L 68 21 113/73 98 04/28/17 22:08 72 159/90 04/28/17 22:00 99 04/28/17 21:09 98 04/28/17 20:35 98.1 F 72 21 159/90 98 04/28/17 18:42 70 140/84 04/28/17 18:00 72 04/28/17 16:10 98.3 F 91 H 18 149/89 100 04/28/17 11:50 70 20 99 04/28/17 11:40 98.2 F 70 18 140/84 98 - Physical Examination General: No Apparent Distress HEENT: Positive: PERRL, Normocephaly, Mucus Membranes Moist Neck: Positive: neck supple, trachea midline Cardiac: Positive: Reg Rate and Rhythm Lungs: Positive: clear to auscultation Neuro: Positive: Grossly Intact, Cranial Nerve 2-12 Intact Abdomen: Positive: Unremarkable, Soft, Active Bowel Sounds. Negative: Tender Skin: Positive: Clear. Negative: Rash, Wound Musculoskeletal: No Fluid Collection, No Pain, Normal Range of Motion Extremities: Absent: edema - Labs and Meds Comprehensive Metabolic Panel 04/29/17 Range/Units 08:23 Sodium 142 (137-145) mmol/L Potassium 5.3 H D (3.6-5.0) mmol/L Chloride 106.5 (98-107) mmol/L Carbon Dioxide 23 (22-30) mmol/L BUN 14 (9-20) mg/dL Creatinine 1.2 (0.8-1.5) mg/dL Glucose 103 H (75-100) mg/dL Calcium 8.2 L (8.4-10.2) mg/dL - Imaging and Cardiology EKG: report reviewed, image reviewed Pharmacologic stress test: report reviewed (normal myocardial perfusion no ischemia normal lv function) Echo: pending, report reviewed Cardiac cath: report reviewed - Telemetry EKG Rhythm: Sinus Rhythm - EKG Sinus rhythms and dysrhythmias: sinus rhythm
--- NOTE | 2017-04-29 11:37 | Discharge Summary ---
Providers - Providers Date of Admission: 04/27/17 23:44 Attending physician: MADYSON ADAMS MD 04/28/17 14:10 Consult to Physician [CONS] Routine Consulting Provider: ANDRZEJ TORRES Reason For Exam: aortic anursysm Place consult to:: robert Notified:: misa Was contact made?: Yes Time called:: 15:13 Primary care physician: SPECIAL PROCEDURES TECHNOLOGIST Hospitalization Reason for admission: chest pain Condition: Stable Hospital course: 76 YO Male with CAD S/P CABG, COPD, CHF, HTN, HLD, Nicotine Dependence, Aortic Aneurysm(4.7cm) presents to ED for evaluation. Pt states that he has experienced chest pain for the past 1day, with worsening symptoms over the past 2 hours. Pain is 9/10, substernal, radiates to his left arm, no exacerbating of alleviating factors. Pt denies fever, chills, back pain, syncope, difficulty breathing, productive cough, recent ill contacts. Patient states that he has seen his vascular surgeon and that his AAA in currently being monitored and pending intervention when aneurysm approaches 5 cm. Patient was seen and evaluated by cardiology, stress was done and negative. CTA chest showed Anssymal sac now 5.3cm, vascular did see the pateint and recommend patient should follow with them outpatient or with his [place] surgeon. This was conveyed to the patient and the need to contact the surgeon immediately on discharge and not wait till June. Patient verbalized understanding. He is chest pain free at this time. Again he advised that the chest pain has been waxing and wanning for the past two years, I have also recommended an outpt GI evaluation to r/o Malcolm, considering patients hx. * Atypical chest pain likely costochondritis * Nicotine dependence * Dyslipidemia * CAD, s/p CABG x 2 in 1996 * Chronic hypoxemia * PPM in situ * Abdominal aortic aneurysm * HTN * HLCOPD * H/o CVA * PAD Disposition: [id number] HOME UNDER HOME [facility] Time spent for discharge: 35 mins Core Measure Documentation - Palliative Care Palliative Care/ Comfort Measures: Not Applicable - Core Measures Any of the following diagnoses?: none - VTE Discharge Requirements Deep Vein Thrombosis/Pulmonary Embolism Present on Admission: No Exam - Physical Exam Narrative exam: VITAL SIGNS: Reviewed. GENERAL: The patient appeared chronically ill appearing otherwise normally developed. Vital signs as documented. HEAD: No signs of head trauma. EYES: Pupils are equal. Extraocular motions intact. EARS: Hearing grossly intact. MOUTH: Oropharynx is normal. NECK: No adenopathy, no JVD. CHEST: Chest with diminished breath sounds bilaterally. No wheezes, rales, or rhonchi. CARDIAC: Regular rate and rhythm. S1 and S2, without murmurs, gallops, or rubs. VASCULAR: No Edema. Peripheral pulses normal and equal in all extremities. ABDOMEN: Soft, without detectable tenderness. No sign of distention. No rebound or guarding, and no masses palpated. Bowel Sounds normal. MUSCULOSKELETAL: Good range of motion of all major joints. Extremities without clubbing, cyanosis or edema. NEUROLOGIC EXAM: Alert and oriented x 3. No focal sensory or strength deficits. Speech normal. Follows commands. PSYCHIATRIC: Mood normal. SKIN: No rash or lesions. - Constitutional Vitals: Temp Pulse Resp BP Pulse Ox 97.5 F L 60 20 121/66 98 04/29/17 08:30 04/29/17 10:00 04/29/17 10:00 04/29/17 08:30 04/29/17 10:00 Plan Activity: advance as tolerated, fall precautions Diet: low fat Special Instructions: record daily BP diary, other (continue Home dose Bystolic as ordered by primary care physician) Additional Instructions: follow with vascular surgeon Follow up with: PRIMARY CAREMD [Primary Care Provider] - 3-5 Days MYRON RUELAS MD [Staff Physician] - 7 Days Prescriptions: traMADol [Ultram 50 MG tab] 50 mg PO Q6H PRN #10 tablet PRN Reason: Pain, Moderate (4-6)
[2017-04-29] MEDS: IMDUR PO SCH (11:45)
[2017-04-29] MEDS: BABY ASPIRIN PO SCH (11:45)
[2017-04-29] MEDS: LASIX PO SCH (11:45)
[2017-04-29] MEDS: NORVASC PO SCH (11:45)
[2017-04-29] MEDS: TOPROL XL PO SCH (11:46)
[2017-04-29] MEDS ORDERED: ULTRAM PO PRN (12:30)
--- NOTE | 2017-04-29 14:59 | Consultation ---
History of Present Illness - Reason for Consult Consult date: 04/29/17 Requesting physician: MADYSON ADAMS - History of Present Illness This patient is a 76-year-old male that was admitted via the emergency room on 04/27/2017 due to a 2 day h/o chest pain. A Cardiology consult was placed, and a chest pain workup initiated. The Patient is status post a endovascular repair of an abdominal aortic aneurysm approximately [address] De La Rosa at [facility]. He was subsequently noted to have an endoleak. Dr. De La Rosa sent him to a vascular surgeon at [facility], Dr Porter, for further workup. Reportedly an arteriogram was performed. The patient states that he was told that the aneurysm would need to be repaired open, however this would be delayed until the aneurysm was greater than 5 cm. It was 4.7 cm at that time (as per the pt report). The patient has a follow-up visit scheduled for June 2017. Following this admission a CT scan of the chest was ordered. This revealed evidence of a stent graft repair of a previous abdominal aortic aneurysm. A Vascular surgery consult has been requested to further evaluate. Past History Past Medical History: CAD, COPD, DVT, hypertension, hyperlipidemia, PVD Past Surgical History: appendectomy, CABG, Other (bladder surgery, EVAR, Arteriogram due to an Endoleak of the previously stent/graph repaired AAA, IVC Filter) Social history: , lives with family. denies: smoking (quit smoking ~ 3yrs ago), alcohol abuse, prescription drug abuse, IV drug use Family history: CAD, cancer (leukemia), hypertension Medications and Allergies Allergies Allergy/AdvReac Type Severity Reaction Status Date / Time No Known Allergies Allergy Verified 04/27/17 19:49 Home Medications Medication Instructions Recorded Confirmed Last Taken Type Aspirin [Aspirin BABY CHEW TAB] 81 mg PO QDAY 07/05/13 04/28/17 1 Day Ago History Atorvastatin [Lipitor] 80 mg PO QHS 07/05/13 04/28/17 1 Day Ago History Furosemide [Lasix] 20 mg PO DAILY 07/05/13 04/28/17 1 Day Ago History Isosorbide Mononitrate [Isosorbide 60 mg PO DAILY 07/05/13 04/28/17 1 Day Ago History Mononitrate ER (IMDUR)] Losartan [Cozaar] 100 mg PO QDAY 07/05/13 04/28/17 1 Day Ago History Niacin [Niaspan] 500 mg PO DAILY 07/05/13 04/28/17 1 Day Ago History amLODIPine [Norvasc] 10 mg PO DAILY 07/05/13 04/28/17 2 Days Ago History Clopidogrel [Plavix] 75 mg PO QDAY 02/03/14 04/28/17 1 Day Ago History Budesonide [Pulmicort Respules] 0.5 mg IH Q12HRT #60 nebu 02/09/14 04/28/17 1 Day Ago Rx Famotidine [Pepcid] 40 mg PO QHS #30 tablet 02/09/14 04/28/17 1 Day Ago Rx Ipratropium/Albuterol Sulfate 1 ampul IH Q6HRT #100 ampul.neb 02/09/14 04/28/17 1 Day Ago Rx [DUONEB *Not for PRN Use*] Potassium Chloride 10 meq PO QDAY #30 capsule.er 02/09/14 04/28/17 1 Day Ago Rx cloNIDine [Catapres] 0.1 mg PO BID #60 tablet 02/09/14 04/28/17 2 Days Ago Rx traMADol [Ultram 50 MG tab] 50 mg PO Q6H PRN #10 tablet 04/29/17 Unknown Rx Active Meds: Active Medications Acetaminophen (Tylenol) 650 mg PO Q4H PRN PRN Reason: Pain MILD(1-3)/Fever >100.5/MOTA Last Admin: 04/28/17 00:18 Dose: 650 mg Albuterol (Proventil) 2.5 mg IH Q4HRT PRN PRN Reason: Shortness Of Breath Amlodipine Besylate (Norvasc) 10 mg PO DAILY [facility] Last Admin: 04/29/17 11:45 Dose: 10 mg Aspirin (Baby Aspirin) 81 mg PO QDAY [facility] Last Admin: 04/29/17 11:45 Dose: 81 mg Atorvastatin Calcium (Lipitor) 80 mg PO QHS [facility] Last Admin: 04/28/17 22:08 Dose: 80 mg Furosemide (Lasix) 20 mg PO DAILY [facility] Last Admin: 04/29/17 11:45 Dose: 20 mg Isosorbide Mononitrate (Imdur) 60 mg PO DAILY [facility] Last Admin: 04/29/17 11:45 Dose: 60 mg Metoprolol Succinate (Toprol Xl) 25 mg PO QDAY [facility] Last Admin: 04/29/17 11:46 Dose: 25 mg Morphine Sulfate (Morphine) 2 mg IV Q4H PRN PRN Reason: Pain, Moderate (4-6) Last Admin: 04/29/17 07:38 Dose: 2 mg Oxycodone/Acetaminophen (Percocet 5/325) 1 tab PO Q8H PRN PRN Reason: Pain, Moderate (4-6) Last Admin: 04/28/17 06:56 Dose: 1 tab Sodium Chloride (Sodium Chloride Flush Syringe 10 Ml) 10 ml IV PRN PRN PRN Reason: LINE FLUSH Tramadol HCl (Ultram) 50 mg PO Q6H PRN PRN Reason: Pain, Moderate (4-6) Review of Systems All systems: negative Exam - Constitutional Vitals: Temp Pulse Resp BP Pulse Ox 98.0 F 60 18 119/71 100 04/29/17 11:45 04/29/17 11:45 04/29/17 11:45 04/29/17 11:45 04/29/17 11:45 General appearance: Present: no acute distress - EENT Eyes: Present: EOM intact ENT: hearing intact - Neck Neck: Present: supple - Respiratory Respiratory effort: normal - Extremities Extremities: no ischemia, normal temperature - Abdominal General gastrointestinal: Present: soft (protuberant), non-tender (to shallow or deep palpation, no palp abd pulsations appreciated) - Psychiatric Psychiatric: appropriate mood/affect, intact judgment & insight, cooperative - Neurologic Neurologic: no focal deficits Results - Labs CBC & Chem 7: 04/27/17 23:54 04/29/17 08:23 Labs: Abnormal lab results 04/29/17 Range/Units 08:23 Potassium 5.3 H D (3.6-5.0) mmol/L Glucose 103 H (75-100) mg/dL Calcium 8.2 L (8.4-10.2) mg/dL Assessment and Plan Pt was evaluated. I do not believe his presenting complaints of chest pain are related to his AAA. However, It will need further work up (not necessarily during this admission). The CTA is a sub-optimal study. He will likely need an arteriogram to assess the origin of the endoleak. The CT report suggest the maximum diameter of the Aneurysm sac is 5.3 which has increase from previous reports of 4.7cm. The pt can f/u with our office as an outpt or with his [place] surgeon (although he should call for appt now as opposed to waiting until Jun). - Patient Problems (1) Status post abdominal aortic aneurysm (AAA) repair Status: Acute (2) Chest pain Status: Chronic Qualifiers: Chest pain type: intercostal pain Ischemic chest pain type: I Qualified Code(s): R07.82 - Intercostal pain (3) CAD (coronary artery disease) Status: Chronic Qualifiers: Coronary Disease-Associated Artery/Lesion type: unspecified vessel or lesion type [place] vs. transplanted heart: unspecified whether [place] or transplanted heart Associated angina: with unspecified angina Qualified Code (s): I25.119 - Atherosclerotic heart disease of [place] coronary artery with unspecified angina pectoris (4) HTN (hypertension) Status: Chronic Qualifiers: Hypertension type: essential hypertension Qualified Code(s): I10 - Essential (primary) hypertension (5) Hx of CABG Status: Chronic
[2017-04-29] MEDS: PERCOCET 5/325 PO PRN (16:02)
[2017-04-29 18:19] VITALS: BP 109/66
--- NOTE | 2017-04-30 00:47 | Treadmill Report ---
Cardiac nuclear perfusion study done on 04/29/2017. REASON FOR STUDY: Chest pain. IMAGING PROTOCOL: The patient received 10 mCi of Technetium 99m Tetrofosmin for resting image and 28 mCi of Technetium 99m Tetrofosmin for stress imaging. The imaging for the whole procedure was completed 30-90 minutes following the initial injection of Technetium 99m tetrofosmin. The SPECT imaging in the 180 degree arc was performed in the right anterior oblique projection. Computerized reconstruction of the images was performed for analysis. IMAGING RESULTS: Normal cavity size from stress to rest. Normal distribution of radionuclide in the anterior, inferior, septal, and apical regions. Gated SPECT 61% with no wall motion abnormalities. The patient infused Lexiscan with no EKG changes. SUMMARY: 1. Negative Lexiscan EKG. 2. Normal rest and stress myocardial perfusion scan. No significant stress ischemia. No wall motion abnormality. Gated SPECT 61%. JOB# [id number] ALIN/MALICK
== END 2017-04-29 20:10 | disposition home health service (06) | DRG 206 ==
LOC: ED 19:36 → 4A 23:44
PROVIDERS: ADMIT Internal Medicine; ATTEND Internal Medicine
DX: M94.0 Chondrocostal junction syndrome [Tietze] (principal); I24.9 Acute ischemic heart disease, unspecified; I71.4 Abdominal aortic aneurysm, without rupture; I25.2 Old myocardial infarction; I11.0 Hypertensive heart disease with heart failure; M19.90 Unspecified osteoarthritis, unspecified site; I71.9 Aortic aneurysm of unspecified site, without rupture; I50.9 Heart failure, unspecified; J44.9 Chronic obstructive pulmonary disease, unspecified; E78.5 Hyperlipidemia, unspecified; F17.210 Nicotine dependence, cigarettes, uncomplicated; I73.9 Peripheral vascular disease, unspecified; R09.02 Hypoxemia; I25.118 Atherosclerotic heart disease of native coronary artery with other forms of angina pectoris; I27.2 Other secondary pulmonary hypertension; Z79.82 Long term (current) use of aspirin; Z86.73 Personal history of transient ischemic attack (TIA), and cerebral infarction without residual deficits; Z90.49 Acquired absence of other specified parts of digestive tract; Z95.1 Presence of aortocoronary bypass graft; Z82.49 Family history of ischemic heart disease and other diseases of the circulatory system; Z95.0 Presence of cardiac pacemaker
CPT/HCPCS: 36415; 71275; 74175; 78452; 80048; 80061; 84484; 85025; 93005; 93010; 93017; 93306; 94760; A9270-GY; A9502; J2270; J2785; Q9967

== ENCOUNTER 2019-10-19 09:16 | Outpatient (CLI) | payer MEDICARE ==
--- NOTE | 2019-10-19 11:03 | XRay Report ---
CHEST 2 VIEWS INDICATION: COPD. COMPARISON: None. FINDINGS: Support devices: Pacemaker leads in the heart. Heart: Within normal limits. Pulmonary vasculature: Normal. Lungs/pleura: The lungs are hyperexpanded and hyperlucent. No pulmonary nodule or mass. No airspace d isease. No pneumothorax. Additional findings: Median sternotomy wires and mediastinal surgical clips. IMPRESSION: 1. No acute findings. 2. COPD. 3. Status post CABG. Signer Name: Rob Mclaughlin MD Signed: 10/19/2019 10:58 AM Workstation Name: [id number]
== END 2019-10-19 09:17 | disposition home or self-care (01) ==
LOC: XRAY 09:16
PROVIDERS: ATTEND Internal Medicine
DX: J44.9 Chronic obstructive pulmonary disease, unspecified (principal); Z98.890 Other specified postprocedural states
CPT/HCPCS: 36600; 71046

== ENCOUNTER 2022-06-09 13:47 | Inpatient (IN) | payer MEDICARE ==
[~2022-06-09 13:47] MED LIST: ETOMIDATE 20 MG/10 ML INJ IV ONE; ROCURONIUM 50 MG/5 ML INJ IV ONE
--- NOTE | 2022-06-09 13:57 | Emergency Department Report ---
ED Altered Mental Status HPI - General Stated Complaint: STROKE Source: family Limitations: Altered Mental Status - History of Present Illness Initial Comments: Patient is a 81-year-old male brought in by POV for altered mental status that began at approximately 1 PM this afternoon. On arrival he is altered and unresponsive to sternal rub. - Related Data Home Medications Medication Instructions Recorded Confirmed Last Taken Aspirin [Aspirin BABY CHEW TAB] 81 mg PO QDAY 07/05/13 04/28/17 1 Day Ago ~04/27/17 Atorvastatin [Lipitor] 80 mg PO QHS 07/05/13 04/28/17 1 Day Ago ~04/27/17 Furosemide [Lasix] 20 mg PO DAILY 07/05/13 04/28/17 1 Day Ago ~04/27/17 Isosorbide Mononitrate [Isosorbide 60 mg PO DAILY 07/05/13 04/28/17 1 Day Ago Mononitrate ER (IMDUR)] ~04/27/17 Losartan [Cozaar] 100 mg PO QDAY 07/05/13 04/28/17 1 Day Ago ~04/27/17 Niacin [Niaspan] 500 mg PO DAILY 07/05/13 04/28/17 1 Day Ago ~04/27/17 amLODIPine 10 mg PO DAILY 07/05/13 04/28/17 2 Days Ago ~04/26/17 Clopidogrel [Plavix] 75 mg PO QDAY 02/03/14 04/28/17 1 Day Ago ~04/27/17 Previous Rx's Medication Instructions Recorded Last Taken Type Budesonide [Pulmicort Respules] 0.5 mg IH Q12HRT #60 nebu 02/09/14 1 Day Ago Rx ~04/27/17 Famotidine [Pepcid] 40 mg PO QHS #30 tablet 02/09/14 1 Day Ago Rx ~04/27/17 Ipratropium/Albuterol Sulfate 1 ampul IH Q6HRT #100 ampul.neb 02/09/14 1 Day Ago Rx [DUONEB *Not for PRN Use*] ~04/27/17 Potassium Chloride 10 meq PO QDAY #30 capsule.er 02/09/14 1 Day Ago Rx ~04/27/17 cloNIDine [Catapres] 0.1 mg PO BID #60 tablet 02/09/14 2 Days Ago Rx ~04/26/17 traMADoL [Ultram 50 MG tab] 50 mg PO Q6H PRN #10 tablet 04/29/17 Unknown Rx Allergies Allergy/AdvReac Type Severity Reaction Status Date / Time No Known Allergies Allergy Verified 04/27/17 19:49 ED Review of Systems ROS: Stated complaint: STROKE Other details as noted in HPI Comment: Unobtainable due to pts medical conditions ED Past Medical Hx - Past Medical History Hx Hypertension: Yes Hx CVA: Yes (2) Hx Heart Attack/AMI: Yes Hx Congestive Heart Failure: Yes Hx Diabetes: No Hx Arthritis: Yes Hx Asthma: No 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 - Surgical History Hx Open Heart Surgery: Yes (1995) Hx Appendectomy: Yes Additional Surgical History: bladder surgery - Social History Smoking Status: Former Smoker - Medications Home Medications: Home Medications Medication Instructions Recorded Confirmed Last Taken Type Aspirin [Aspirin BABY CHEW TAB] 81 mg PO QDAY 07/05/13 04/28/17 1 Day Ago History ~04/27/17 Atorvastatin [Lipitor] 80 mg PO QHS 07/05/13 04/28/17 1 Day Ago History ~04/27/17 Furosemide [Lasix] 20 mg PO DAILY 07/05/13 04/28/17 1 Day Ago History ~04/27/17 Isosorbide Mononitrate [Isosorbide 60 mg PO DAILY 07/05/13 04/28/17 1 Day Ago History Mononitrate ER (IMDUR)] ~04/27/17 Losartan [Cozaar] 100 mg PO QDAY 07/05/13 04/28/17 1 Day Ago History ~04/27/17 Niacin [Niaspan] 500 mg PO DAILY 07/05/13 04/28/17 1 Day Ago History ~04/27/17 amLODIPine 10 mg PO DAILY 07/05/13 04/28/17 2 Days Ago History ~04/26/17 Clopidogrel [Plavix] 75 mg PO QDAY 02/03/14 04/28/17 1 Day Ago History ~04/27/17 Budesonide [Pulmicort Respules] 0.5 mg IH Q12HRT #60 nebu 02/09/14 04/28/17 1 Day Ago Rx ~04/27/17 Famotidine [Pepcid] 40 mg PO QHS #30 tablet 02/09/14 04/28/17 1 Day Ago Rx ~04/27/17 Ipratropium/Albuterol Sulfate 1 ampul IH Q6HRT #100 ampul.neb 02/09/14 04/28/17 1 Day Ago Rx [DUONEB *Not for PRN Use*] ~04/27/17 Potassium Chloride 10 meq PO QDAY #30 capsule.er 02/09/14 04/28/17 1 Day Ago Rx ~04/27/17 cloNIDine [Catapres] 0.1 mg PO BID #60 tablet 02/09/14 04/28/17 2 Days Ago Rx ~04/26/17 traMADoL [Ultram 50 MG tab] 50 mg PO Q6H PRN #10 tablet 04/29/17 Unknown Rx ED Physical Exam - General General appearance: obtunded - Head Head exam: Present: atraumatic, normocephalic - Eye Pupils: Present: other (Right pupil 3 mm left pupil 2 mm) - Respiratory Respiratory exam: Present: normal lung sounds bilaterally. Absent: respiratory distress - Cardiovascular Cardiovascular Exam: Present: normal rhythm, bradycardia, normal heart sounds - GI/Abdominal GI/Abdominal exam: Present: soft. Absent: distended - Rectal Rectal exam: Present: deferred - Neurological Exam Neurological exam: Present: other (GCS 3) - Skin Skin exam: Present: warm, dry, intact, normal color - Assessment Assessment Interval: Baseline - Level of Consciousness 1a. Level of Consciousness: coma/unresponsive - LOC Questions 1b. LOC Questions: aphasic - LOC Command 1c. LOC Commands: performs no tasks correctly - Best Gaze 2. Best Gaze: corrects with occulocephalic reflex - Visual 3. Visual: no visual loss - Facial Palsy 4. Facial Palsy: normal symmetrical movement - Motor Arm 5a. Motor Arm Left: no movement 5b. Motor Arm Right: no movement - Motor Leg 6a. Motor Leg Left: no movement 6b. Motor Leg Right: no movement - Limb Ataxia 7. Limb Ataxia: absent - Sensory 8. Sensory: coma/unresponsive - Best Language 9. Best Language: coma/unresponsive - Dysarthria 10. Dysarthria: intubated or other barrier - Extinction and Inattention 11. Extinction/Inattention: complete neglect - Scoring Total Score: 31 Stroke Severity: Severe Stroke ED Course Vital Signs 06/09/22 06/09/22 06/09/22 13:53 14:07 15:00 Pulse Rate 64 60 Respiratory 8 L 20 Rate Blood Pressure 211/109 238/112 [Left] O2 Sat by Pulse 96 100 100 Oximetry - Intubation Time Out Performed: No Sedative: Etomidate Mg Given: 20 Paralytic: Rocuronium Mg Given: 100 Laryngoscope: fiberoptic video scope Size: 4 ET Tube Size: 7.5 Tube Placement Confirmation: visualized tube passing t Patient Tolerated Procedure: well, no complications Intubation Complications: none - Medical Decision Making Patient intubated for airway protection due to severe altered mental status from suspected ICH. CT head shows large IVH with mild midline shift. Patient started on Cardene infusion. Head of bed elevated. Patient is on Plavix. I discussed case with Drs. Roger and Ugo at [facility]. Patient initially set up for transfer however after I sent her a video of the images she called back to inform me that this is an unsurvivable injury. I allowed her to speak to the family in the room on speaker phone to relay this information. Will admit to hospitalist for hospice placement. Critical Care Time: Yes Critical care time in (mins) excluding proc time.: 60 Critical care attestation.: If time is entered above; I have spent that time in minutes in the direct care of this critically ill patient, excluding procedure time. ED Disposition Clinical Impression: Spontaneous intraventricular intracranial hemorrhage, acute Disposition: ADMITTED INPATIENT Is pt being admited?: Yes Condition: Stable
[2022-06-09] MEDS ORDERED: niCARdipine DRIP 40 MG/200 ML BAG IV ONE (14:38)
[2022-06-09] MEDS ORDERED: MANNITOL 20% 500 ML IV ONE (14:53)
--- NOTE | 2022-06-09 14:53 | Cat Scan Report ---
CT HEAD WITHOUT CONTRAST INDICATION / CLINICAL INFORMATION: Stroke symptoms. TECHNIQUE: All CT scans at this location are performed using CT dose reduction for ALARA by means of automated e xposure control. COMPARISON: None available. FINDINGS: There is acute intracranial hemorrhage. Diffuse hemorrhage is seen within the region of the thalamus. Intraventricular hemorrhage within the third ventricle, lateral ventricles and into the fourth ventr icle. Diffuse low attenuation within the periventricular and central white matter. Right subdural acu te intracranial hemorrhage with chronic and several components bilaterally. Mild midline shift right to left measures 5 to 6 mm. No acute bone findings are seen. ADDITIONAL FINDINGS: None. IMPRESSION: 1. Large hemorrhagic stroke by history with a large amount of intracranial hemorrhage. There is inter vertebral hemorrhage within the periventricular region right thalamus there is also intraventricular hemorrhage within the lateral ventricles third ventricle and fourth ventricle. Bilateral subdural hem orrhages with chronic components. Acute on chronic subdural hemorrhage on the right. Mild midline gael ft. 2. Diffuse low-attenuation throughout the periventricular and central white matter with diffuse atrop hy. CT angiogram could be performed for further evaluation CRITICAL RESULT: Time of Discovery (TIME BUYER/CDT): 145 Time of Communication (TIME BUYER/CDT): 145 Licensed Practitioner Receiving Report: Dr Riley Read-Back Performed: Yes. Signer Name: Bear Carvajal MD Signed: 06/09/2022 2:49 PM Workstation Name: [id number]
[2022-06-09] MEDS ORDERED: SODIUM CHLORIDE 0.9% 500 ML 500 ML IV ONE (14:54)
--- NOTE | 2022-06-09 15:05 | XRay Report ---
CHEST 1 VIEW 06/09/2022 1:54 PM INDICATION / CLINICAL INFORMATION: Post intubation. COMPARISON: 10/19/2019 FINDINGS: SUPPORT DEVICES: Stable, satisfactory device positioning. HEART / MEDIASTINUM: No significant abnormality. LUNGS / PLEURA: No significant change No pneumothorax. Signer Name: Bear Carvajal MD Signed: 06/09/2022 3:00 PM Workstation Name: [id number]
[2022-06-09 15:30] LABS: Basophils % (Auto) 0.5 % (0.0-1.8); Eosinophils # (Auto) 0.2 K/mm3 (0.0-0.4); Eosinophils % (Auto) 2.7 % (0.0-4.3); Hemoglobin 13.3 gm/dl (11.8-15.2); Lymphocytes # (Auto) 0.8 K/mm3 (1.2-5.4); Lymphocytes % (Auto) 8.7 % (13.4-35.0); Mean Corpuscular HGB Conc 33 % (32-34); Mean Corpuscular Volume 94 fl (84-94); Monocytes # (Auto) 0.6 K/mm3 (0.0-0.8); Monocytes % (Auto) 6.3 % (0.0-7.3); Platelet Count 141 K/mm3 (140-440); Red Blood Count 4.35 M/mm3 (3.65-5.03); Red Cell Distribution Width 14.8 % (13.2-15.2)
[2022-06-09 15:32] LABS: INR 0.85 (0.87-1.13)
[2022-06-09 15:33] LABS: Partial Thromboplastin Time 26.8 Sec. (24.2-36.6); Thrombin Time 16.6 Sec. (15.1-19.6)
[2022-06-09 15:39] LABS: Creatine Kinase MB 3.3 ng/mL (0.0-4.0)
[2022-06-09] MEDS: MANNITOL 20% 500 ML IV ONE ×2 (15:39→16:04)
[2022-06-09 15:41] LABS: Albumin 4.4 g/dL (3.9-5); Calcium 9.4 mg/dL (8.4-10.2)
--- NOTE | 2022-06-09 15:45 | Emergency Department Report ---
Blank Doc - Documentation Documentation: [facility] Consult Note # Demographics Consult Type: Acute Stroke Level 1 (0-4.5 hrs) Patient Location: Emergency Room First Name: Dinesh Last Name: Alejandrina Date of : 1940 Age: 81 Gender: Male Facility: [facility] Time of Initial Page (Eastern Time): 06/09/2022, 13:49 Time of Return Call (Eastern Time): 06/09/2022, 13:49 # HPI History: 81 year old male who had acute onset of AMS about 1 hours ago. Presented with cushings, elevated BP and bradycardic. One pupil was dilated as per ED. Pt intubated and sedated due to low GCS. # Data Head CT: hemorrhage preliminarily reviewed by me, please refer to radiology read for official reading very large intraventricular bleed with enlarged temporal horns # Assessment Impression: Recommendations: Keep head of bed at 30 degrees is possible. Hyperventilation to rate of 20 BPM while pending transfer as a temporary measure and Mannitol IV to reduce ICP. Keep pain and agitation control. Keep patient euvolemic, with normal sodium and glucose levels. BP control with SBP <140. Zofran for nausea and vomiting to prevent aspiration. Unclear if patient on anticoagulation. If noted to be on anticoagulation, patient will urgently need to be reversed by ED. Labs still pending to assess further. STAT NSX consultation. CTA head and neck to assess for aneurysm. Repeat CTH in 6 hours to confirm for stability. # Plan Target Blood Pressure: SBP > 140 DBP < 105 Labs: CBC comprehensive metabolic panel troponin urine drug screen ua Imaging: (urgency: STAT): CT Angiogram Head and CT Angiogram Neck Imaging: (urgency: routine): repeat cth in 6 hours Other: telemetry monitoring I have discussed my recommendations with the referring provider Disposition: transfer # Demographics First Name: Dinesh Last Name: Alejandrina Facility: [facility]
[2022-06-09 16:14] LABS: Chol/HDL Ratio 3.92 %
[2022-06-09 18:14] LABS: ABG Base Excess 4.9 mmol/L (-2.0-3.0); ABG HCO3 29.5 mmol/L (20.0-26.0); ABG Methemoglobin 0.6 % (0.0-1.5); ABG Oxygen Saturation 99.6 % (95.0-99.0); ABG PCO2 43.5 mm Hg; ABG PH 7.449 pH Units (7.350-7.450)
[2022-06-09 18:15] LABS: ABG PO2 508.9 mm Hg (80.0-90.0)
[2022-06-09] MEDS ORDERED: ONDANSETRON 4 MG/2 ML INJ IV PRN (21:01)
[2022-06-09] MEDS ORDERED: MORPHINE 2 MG/1 ML INJ IV PRN (21:01)
[2022-06-09] MEDS ORDERED: METOCLOPRAMIDE 10 MG/2 ML INJ IV PRN ×2 (21:01→21:15)
[2022-06-09] MEDS ORDERED: HYDROmorphone 0.5 MG/0.5 ML INJ IV PRN (21:01)
[2022-06-09] MEDS ORDERED: ACETAMINOPHEN 325 MG TAB PO PRN (21:01)
--- NOTE | 2022-06-09 21:12 | History and Physical Report ---
History of Present Illness Date of examination: 06/09/22 Date of admission: 06/09/2022 Chief complaint: Unresponsive since 1 PM History of present illness: 81-year-old male brought in by private vehicle for altered mental status that began at approximately 1 PM this afternoon. Patient became unresponsive. 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 Patient has a history of hypertension and coronary artery disease and hyperlipidemia. As per significant other's patient is compliant with his medications. Apparently his blood pressure was running high and was given a new blood pressure medicine on Friday which is 2 Days ago. In the emergency room emergent CAT scan showed massive intraventricular bleed and thalamic hemorrhage. [facility] was called for transfer by the neurosurgeon there did not accept the patient because it is a bad prognosis and they could no t offer much. Family decided on DNR and supportive care insulin [facility]. Patient was intubated at the time of her arrival. As per family wishes patient to be extubated tomorrow after the rest of the family arrives. No fever or chills. 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 - Surgical History --Open Heart Surgery: Yes (1995) --Appendectomy: Yes --Additional Surgical History: bladder surgery - Social History --Smoking Status: Former Smoker --Family history - Htn - Medications --Home Medications: Home Medications Medication Instructions Recorded Confirmed Last Taken Type Aspirin [Aspirin BABY CHEW TAB] 81 mg PO QDAY 07/05/13 04/28/17 1 Day Ago History ~04/27/17 Atorvastatin [Lipitor] 80 mg PO QHS 07/05/13 04/28/17 1 Day Ago History ~04/27/17 Furosemide [Lasix] 20 mg PO DAILY 07/05/13 04/28/17 1 Day Ago History ~04/27/17 Isosorbide Mononitrate [Isosorbide 60 mg PO DAILY 07/05/13 04/28/17 1 Day Ago History Mononitrate ER (IMDUR)] ~04/27/17 Losartan [Cozaar] 100 mg PO QDAY 07/05/13 04/28/17 1 Day Ago History ~04/27/17 Niacin [Niaspan] 500 mg PO DAILY 07/05/13 04/28/17 1 Day Ago History ~04/27/17 amLODIPine 10 mg PO DAILY 07/05/13 04/28/17 2 Days Ago History ~04/26/17 Clopidogrel [Plavix] 75 mg PO QDAY 02/03/14 04/28/17 1 Day Ago History ~04/27/17 Budesonide [Pulmicort Respules] 0.5 mg IH Q12HRT #60 nebu 02/09/14 04/28/17 1 Day Ago Rx ~04/27/17 Famotidine [Pepcid] 40 mg PO QHS #30 tablet 02/09/14 04/28/17 1 Day Ago Rx ~04/27/17 Ipratropium/Albuterol Sulfate 1 ampul IH Q6HRT #100 ampul.neb 02/09/14 04/28/17 1 Day Ago Rx [DUONEB *Not for PRN Use*] ~04/27/17 Potassium Chloride 10 meq PO QDAY #30 capsule.er 02/09/14 04/28/17 1 Day Ago Rx ~04/27/17 cloNIDine [Catapres] 0.1 mg PO BID #60 tablet 02/09/14 04/28/17 2 Days Ago Rx ~04/26/17 traMADoL [Ultram 50 MG tab] 50 mg PO Q6H PRN #10 tablet 04/29/17 Unknown Rx Review of Systems ROS: Constitutional unresponsive since 1 PM HEENT no sore throat no post nasal drip no diplopia Neck no neck stiffness no lymph gland enlargement Chest and lungs no shortness of breath cough or wheezing CVS no shortness of breath. GI no nausea no vomiting no diarrhea Genitourinary system no dysuria no flank pain Musculoskeletal system no muscle pains no joint pains [employer] unresponsive since 1 PM Skin no rash no itching Psychiatric no depression no homicidal or suicidal tendencies Hematologic no lymphedema or bruising Endocrine no polydipsia no polyuria no cold intolerance no heat intolerance Medications and Allergies Allergies Allergy/AdvReac Type Severity Reaction Status Date / Time No Known Allergies Allergy Verified 04/27/17 19:49 Home Medications Medication Instructions Recorded Confirmed Last Taken Type Aspirin [Aspirin BABY CHEW TAB] 81 mg PO QDAY 07/05/13 04/28/17 1 Day Ago History ~04/27/17 Atorvastatin [Lipitor] 80 mg PO QHS 07/05/13 04/28/17 1 Day Ago History ~04/27/17 Furosemide [Lasix] 20 mg PO DAILY 07/05/13 04/28/17 1 Day Ago History ~04/27/17 Isosorbide Mononitrate [Isosorbide 60 mg PO DAILY 07/05/13 04/28/17 1 Day Ago History Mononitrate ER (IMDUR)] ~04/27/17 Losartan [Cozaar] 100 mg PO QDAY 07/05/13 04/28/17 1 Day Ago History ~04/27/17 Niacin [Niaspan] 500 mg PO DAILY 07/05/13 04/28/17 1 Day Ago History ~04/27/17 amLODIPine 10 mg PO DAILY 07/05/13 04/28/17 2 Days Ago History ~04/26/17 Clopidogrel [Plavix] 75 mg PO QDAY 02/03/14 04/28/17 1 Day Ago History ~04/27/17 Budesonide [Pulmicort Respules] 0.5 mg IH Q12HRT #60 nebu 02/09/14 04/28/17 1 Day Ago Rx ~04/27/17 Famotidine [Pepcid] 40 mg PO QHS #30 tablet 02/09/14 04/28/17 1 Day Ago Rx ~04/27/17 Ipratropium/Albuterol Sulfate 1 ampul IH Q6HRT #100 ampul.neb 02/09/14 04/28/17 1 Day Ago Rx [DUONEB *Not for PRN Use*] ~04/27/17 Potassium Chloride 10 meq PO QDAY #30 capsule.er 02/09/14 04/28/17 1 Day Ago Rx ~04/27/17 cloNIDine [Catapres] 0.1 mg PO BID #60 tablet 02/09/14 04/28/17 2 Days Ago Rx ~04/26/17 traMADoL [Ultram 50 MG tab] 50 mg PO Q6H PRN #10 tablet 04/29/17 Unknown Rx Active Meds: Active Medications Nicardipine/Sodium Chloride (Cardene Drip 40 Mg/200 Ml) 40 mg in 200 mls @ 25 mls/hr IV ONCE ONE; Protocol Stop: 06/09/22 22:37 Last Titration: 06/09/22 16:51 Dose: 10 mg/hr, 50 mls/hr Exam - Physical Exam Narrative exam: Patient intubated in the emergency room and on vent management - Constitutional Vitals: Temp Pulse Resp BP Pulse Ox 86 15 178/81 98 06/09/22 19:24 06/09/22 18:30 06/09/22 19:24 06/09/22 19:24 General appearance: Present: mild distress, well-nourished - EENT ENT: other (Pupil slightly dilated) - Neck Neck: Present: supple, normal ROM - Respiratory Respiratory effort: normal Respiratory: bilateral: CTA - Cardiovascular Heart rate: 98 Rhythm: regular Heart Sounds: Present: S1 & S2. Absent: rub, click - Extremities Extremities: no ischemia, pulses intact, pulses symmetrical, No edema Peripheral Pulses: within normal limits - Abdominal General gastrointestinal: Present: soft, non-tender, non-distended, normal bowel sounds Male genitourinary: Present: normal - Rectal Rectal Exam: deferred - Integumentary Integumentary: Present: clear, warm, dry - Musculoskeletal Musculoskeletal: generalized weakness, other (Unresponsive) - Psychiatric Psychiatric: other (Unresponsive) - Neurologic Neurologic: CNII-XII intact, moves all extremities HEART Score - HEART Score Troponin: Troponin T 0.035 ng/mL (0.00-0.029) H 06/09/22 15:00 Results - Labs CBC & Chem 7: 06/10/22 04:30 06/10/22 04:30 Labs: Laboratory Last Values WBC 9.1 K/mm3 (4.5-11.0) 06/09/22 15:00 RBC 4.35 M/mm3 (3.65-5.03) 06/09/22 15:00 Hgb 13.3 gm/dl (11.8-15.2) 06/09/22 15:00 Hct 41.0 % (35.5-45.6) 06/09/22 15:00 MCV 94 fl (84-94) 06/09/22 15:00 MCH 31 pg (28-32) 06/09/22 15:00 MCHC 33 % (32-34) 06/09/22 15:00 RDW 14.8 % (13.2-15.2) 06/09/22 15:00 Plt Count 141 K/mm3 (140-440) 06/09/22 15:00 Lymph % (Auto) 8.7 % (13.4-35.0) L 06/09/22 15:00 [place] % (Auto) 6.3 % (0.0-7.3) 06/09/22 15:00 Eos % (Auto) 2.7 % (0.0-4.3) 06/09/22 15:00 Baso % (Auto) 0.5 % (0.0-1.8) 06/09/22 15:00 Lymph # (Auto) 0.8 K/mm3 (1.2-5.4) L 06/09/22 15:00 [place] # (Auto) 0.6 K/mm3 (0.0-0.8) 06/09/22 15:00 Eos # (Auto) 0.2 K/mm3 (0.0-0.4) 06/09/22 15:00 Baso # (Auto) 0.0 K/mm3 (0.0-0.1) 06/09/22 15:00 Seg Neutrophils % 81.8 % (40.0-70.0) H 06/09/22 15:00 Seg Neutrophils # 7.5 K/mm3 (1.8-7.7) 06/09/22 15:00 PT 12.8 Sec. (12.2-14.9) 06/09/22 15:00 INR 0.85 (0.87-1.13) L 06/09/22 15:00 APTT 26.8 Sec. (24.2-36.6) 06/09/22 15:00 Thrombin Time 16.6 Sec. (15.1-19.6) 06/09/22 15:00 ABG pH 7.449 pH Units (7.350-7.450) 06/09/22 18:00 ABG pCO2 43.5 mm Hg 06/09/22 18:00 ABG pO2 508.9 mm Hg (80.0-90.0) H 06/09/22 18:00 ABG HCO3 29.5 mmol/L (20.0-26.0) H 06/09/22 18:00 ABG O2 Saturation 99.6 % (95.0-99.0) H 06/09/22 18:00 ABG O2 Content 19.3 (0.0-44) 06/09/22 18:00 ABG Base Excess 4.9 mmol/L (-2.0-3.0) H 06/09/22 18:00 ABG Hemoglobin 12.9 gm/dl (14.0-18.0) L 06/09/22 18:00 ABG Carboxyhemoglobin 0.9 % (0.0-5.0) 06/09/22 18:00 ABG Methemoglobin 0.6 % (0.0-1.5) 06/09/22 18:00 Oxyhemoglobin 98.2 % (95.0-99.0) 06/09/22 18:00 FiO2 100 % 06/09/22 18:00 Sodium 145 mmol/L (137-145) 06/09/22 15:00 Potassium 3.3 mmol/L (3.6-5.0) L 06/09/22 15:00 Chloride 101.4 mmol/L (98-107) 06/09/22 15:00 Carbon Dioxide 29 mmol/L (22-30) 06/09/22 15:00 Anion Gap 18 mmol/L 06/09/22 15:00 BUN 27 mg/dL (9-20) H 06/09/22 15:00 Creatinine 1.9 mg/dL (0.8-1.3) H 06/09/22 15:00 Estimated GFR 42 ml/min 06/09/22 15:00 BUN/Creatinine Ratio 14 % 06/09/22 15:00 Glucose 114 mg/dL (75-100) H 06/09/22 15:00 Calcium 9.4 mg/dL (8.4-10.2) 06/09/22 15:00 Total Bilirubin 0.50 mg/dL (0.1-1.2) 06/09/22 15:00 AST 24 units/L (5-40) 06/09/22 15:00 ALT 9 units/L (7-56) 06/09/22 15:00 Alkaline Phosphatase 90 units/L (35-129) 06/09/22 15:00 Total Creatine Kinase 168 units/L (55-170) 06/09/22 15:00 CK-MB (CK-2) 3.3 ng/mL (0.0-4.0) 06/09/22 15:00 CK-MB (CK-2) Rel Index 1.9 (0-4) 06/09/22 15:00 Troponin T 0.035 ng/mL (0.00-0.029) H 06/09/22 15:00 Total Protein 7.4 g/dL (6.3-8.2) 06/09/22 15:00 Albumin 4.4 g/dL (3.9-5) 06/09/22 15:00 Albumin/Globulin Ratio 1.5 % 06/09/22 15:00 Triglycerides 115 mg/dL (2-149) 06/09/22 15:00 Cholesterol 247 mg/dL (50-199) H 06/09/22 15:00 LDL Cholesterol Direct 172 mg/dL (50-130) H 06/09/22 15:00 HDL Cholesterol 63 mg/dL (40-59) H 06/09/22 15:00 Cholesterol/HDL Ratio 3.92 % 06/09/22 15:00 Blood Type A POSITIVE 06/09/22 15:13 Short CBC 06/09/22 06/10/22 Range/Units 15:00 04:30 WBC 9.1 12.8 H (4.5-11.0) K/mm3 Hgb 13.3 13.0 (11.8-15.2) gm/dl Hct 41.0 40.3 (35.5-45.6) % Plt Count 141 161 (140-440) K/mm3 BMP 06/09/22 06/10/22 15:00 04:30 Sodium 145 144 Potassium 3.3 L 4.4 D Chloride 101.4 102.4 Carbon Dioxide 29 26 BUN 27 H 30 H Creatinine 1.9 H 2.2 H Glucose 114 H 193 H Calcium 9.4 9.4 Cardiac Enzymes 06/09/22 Range/Units 15:00 Total Creatine Kinase 168 (55-170) units/L CK-MB (CK-2) 3.3 (0.0-4.0) ng/mL Troponin T 0.035 H (0.00-0.029) ng/mL Liver Function 06/09/22 06/10/22 Range/Units 15:00 04:30 Total Bilirubin 0.50 0.60 (0.1-1.2) mg/dL AST 24 33 (5-40) units/L ALT 9 11 (7-56) units/L Alkaline Phosphatase 90 86 (35-129) units/L Albumin 4.4 4.0 (3.9-5) g/dL - Imaging and Cardiology CT Scan - head: report reviewed Imaging and Cardiology: Head CT Large hemorrhagic stroke History with a large amount of intracranial hemorrhage. There is interval vertebral hemorrhage within the periventricular region right thalamus. There is also intraventricular hemorrhage within the lateral ventricles third, third ventricle and fourth ventricle. Bilateral subdural hemorrhages with chronic components. Acute on chronic subdural hemorrhage on the right mild midline shift. Diffuse low-attenuation throughout the periventricular and central white matter with diffuse atrophy. CT angiogram pulm was performed for further evaluation. Chest x-ray ET tubein position No acute findings Assessment and Plan Assessment and plan: Critical care statement The high probability OF a clinically significant sudden or life-threatening deterioration of the cardiorespiratory system and endocrine system required my full and direct attention, intervention and postoperative management. The aggregate critical care time was 65 minutes. The time is in addition to time spent performing reported procedures but includes the followin: Data review and interpretation 2: Patient assessment and monitoring of vital signs 3: Documentation 4:: Medication orders and management Advance Directives: Yes (DNR) Plan of care discussed with patient/family: Yes - Patient Problems (1) Acute intracerebral hemorrhage Current Visit: Yes Status: Acute Plan to address problem: Secondary to hypertensive emergency Severe hemorrhage involving right thalamus and ventricles with slight midline shift to the left Prognosis is very poor [facility] was called and he refused transfer because of the futility and the prognosis. It does not It was decided to admit the patient here and give supportive care Family wants DNR and eventually extubation tomorrow when the rest of the family arrives (2) Hypertensive emergency Current Visit: Yes Status: Acute Plan to address problem: Patient initiated on Cardene drip (3) Coronary artery disease Current Visit: Yes Status: Chronic Qualifiers: Coronary Disease-Associated Artery/Lesion type: bypass graft [place] vs. transplanted heart: [place] heart Plan to address problem: Patient had CABG in the past and is on isosorbide mononitrate Will hold it for now (4) Hyperlipidemia Current Visit: Yes Status: Chronic Qualifiers: Hyperlipidemia type: mixed hyperlipidemia Qualified Code(s): E78.2 - Mixed hyperlipidemia Plan to address problem: Will hold statins for now (5) NATALIYA (acute kidney injury) Current Visit: Yes Status: Acute Plan to address problem: IV fluids for now Vasomotor nephropathy (6) DVT prophylaxis Current Visit: Yes Status: Acute Plan to address problem: SCDs and GI prophylaxis No heparin because of intraventricular hemorrhage (7) Advance care planning Current Visit: Yes Status: Acute Plan to address problem: Disease education conducted care plan discussed diagnosis and prognosis discussed with family at bedside. Patient is DNR. Family acknowledges underst anding of the care plan. +30 minutes.
[2022-06-09] MEDS ORDERED: FAMOTIDINE 20 MG/2 ML INJ IV SCH (22:00)
[2022-06-10] MEDS: D5W/0.45% NACL 1,000 ML IV SCH ×2 (02:15→10:50)
[2022-06-10] MEDS: niCARdipine 50 MG in SODIUM CHLORIDE 0.9% 250ML 230 ML IV SCH ×6 (02:37→20:30)
[2022-06-10 04:49] LABS: Basophils % (Auto) 0.2 % (0.0-1.8); Hematocrit 40.3 % (35.5-45.6); Lymphocytes # (Auto) 0.4 K/mm3 (1.2-5.4); Lymphocytes % (Auto) 3.2 % (13.4-35.0); Mean Corpuscular HGB Conc 32 % (32-34); Mean Corpuscular Volume 94 fl (84-94); Monocytes # (Auto) 1.1 K/mm3 (0.0-0.8); Platelet Count 161 K/mm3 (140-440); Red Blood Count 4.31 M/mm3 (3.65-5.03); Red Cell Distribution Width 14.8 % (13.2-15.2)
[2022-06-10 05:07] LABS: Calcium 9.4 mg/dL (8.4-10.2)
[2022-06-10] MEDS: INSULIN REGULAR, HUMAN 100 UNITS/1 ML SUB-Q SCH ×3 (06:24→17:19)
[2022-06-10] MEDS: FAMOTIDINE 20 MG/2 ML INJ IV SCH ×3 (07:05→23:06)
--- NOTE | 2022-06-10 11:40 | Progress Note ---
Assessment and Plan Assessment and plan: This is a 81-year-old male with known past medical history of CVAx3, HTN, CAD s/p CABG, and HLD admitted for massive intracerebral hemorrhage, not candidate for any intervention Per Neurosurgery at [facility]. Family opted for ANR/DNR status in the ED Hospital Course to Date: 06/10: Remains unresponsive on the vent, pupils are blown and nonreactive with weak gag/cough. Patient is maxed out on Cardene gtt, SBP in the 140-150s. Renal function continue to worsen, despite IVF hydration. Will hold for IVF due to persistent hypertension. Thorough discussion with patient's at the bedside. She confirmed AND/DNR status and voiced possible withdrawal of care once patient's children get here. Case management is also following. Assessment and Plan #Hypertensive Emergency #H/o CAD s/p CABG and HLD - Presented with AMS, and a BP as high as 260/111 - Currently max out on Cardene gtt, SBP in the 140-150s - PO hydralazine added, resume home statin - Continue blood pressure monitor per protocol - Maintain SBP less than 140 #Massive Intracerebral Hemorrhage #H/o of Multiple CVA - most likely secondary to hypertensive emergency - CT head reveals severe hemorrhage involving right thalamus and ventricles with slight midline shift to the left - [facility] contacted for possible transfer in the ED, Neurosurgery at [facility] denied transfer and stated they do not have much to offer. - Patient is not a candidate for any intervention - Patient's family opted for AND/DNR status - Patient is intubated and unresponsive, not on any sedation with no pupillary response and with gag/cough - Seizure precaution #Acute Hypoxic Respiratory Failure - Intubated in the ED on 06/09 for airway protection - Vent setting: PRVC-45%,6,20,450 - AM ABG noted - CCM consulted, appreciate recommendations - VAP bundle addressed - Aspiration precaution HOB above 30 - Daily SBT and SAT trials as tolerated - Daily ABG and CXR - Continue SPO2 monitoring for SPO2 goal above 92% #NATALIYA (Acute Kidney Injury) probably Vasomotor Nephropathy - secondary to above - Renal function continue to worsen despite IVF hydration - Maxed out on Cardene gtt SBP remains in the 140-150s - Will hold IVF for now, PO hydra added for BP control - Strict intake and output - Avoid nephrotoxic medications; Renally dose medications - Monitor and replace electrolytes as needed #GI/DVT prophylaxis - PPI- Pepcid - SCDs to bilateral lower extremities while in bed #Advance Care Planning - Disease education data, care plan, diagnoses, and prognosis were discussed with patient's at the bedside. Patient's confirmed AND/DNR status and voiced possible withdrawal of care once patient's children get here The high probability of a clinically significant, sudden or life threatening deterioration of the [multiple] system(s) required my full and direct attention, intervention and personal management. The aggregate critical care time was [60] minutes. This time is in addition to time spent performing reported procedures but includes the following: [x] Data Review and interpretation [x] Patient assessment and monitoring of vital signs [x] Documentation [x] Medication orders and management Disposition Plan: ICU Total Time Spent with Patient (Minutes): 60 History Interval history: Patient seen and examined at the bedside. Intubated and unresponsive, not on any sedations. Pupils and blown and nonreactive, with weak gag/cough. Remains on Cardene gtt, SBP in the 140-150s. TERE overnight Hospitalist Physical - Constitutional Vitals: Temp Pulse Resp BP Pulse Ox 97.7 F 92 H 18 157/87 97 06/10/22 11:26 06/10/22 11:00 06/10/22 11:00 06/10/22 11:00 06/10/22 11:00 General appearance: Present: other (Intubated and unresponsive) - EENT Eyes: Present: mydriasis (Pupils are blown and nonreactive) - Respiratory Respiratory effort: normal Respiratory: bilateral: rhonchi - Cardiovascular Rhythm: regular Heart Sounds: Present: S1 & S2 - Extremities Extremities: no ischemia, pulses intact, pulses symmetrical Extremity abnormal: edema - Peripheral Assessment Generalized Edema Type: Non-pitting Edema Degree: 2+ Capillary Refill: < 3 seconds Skin Temperature: Warm Peripheral Pulses: within normal limits - Abdominal General gastrointestinal: soft, non-distended, normal bowel sounds - Integumentary Integumentary: Present: warm, dry - Psychiatric Psychiatric: other (WEI, intubated and unresponsive) - Neurologic Neurologic: focal deficits (Pupils are blown and nonreactive with weak cough/gag), other (Intubated and unresponsive, not on any sedations) - Allied Health Allied health notes reviewed: nursing, case management HEART Score - HEART Score Troponin: Troponin T 0.035 ng/mL (0.00-0.029) H 06/09/22 15:00 Results - Labs CBC & Chem 7: 06/10/22 04:30 06/10/22 04:30 Labs: Laboratory Last Values WBC 12.8 K/mm3 (4.5-11.0) H 06/10/22 04:30 RBC 4.31 M/mm3 (3.65-5.03) 06/10/22 04:30 Hgb 13.0 gm/dl (11.8-15.2) 06/10/22 04:30 Hct 40.3 % (35.5-45.6) 06/10/22 04:30 MCV 94 fl (84-94) 06/10/22 04:30 MCH 30 pg (28-32) 06/10/22 04:30 MCHC 32 % (32-34) 06/10/22 04:30 RDW 14.8 % (13.2-15.2) 06/10/22 04:30 Plt Count 161 K/mm3 (140-440) 06/10/22 04:30 Lymph % (Auto) 3.2 % (13.4-35.0) L 06/10/22 04:30 [place] % (Auto) 9.0 % (0.0-7.3) H 06/10/22 04:30 Eos % (Auto) 0.0 % (0.0-4.3) 06/10/22 04:30 Baso % (Auto) 0.2 % (0.0-1.8) 06/10/22 04:30 Lymph # (Auto) 0.4 K/mm3 (1.2-5.4) L 06/10/22 04:30 [place] # (Auto) 1.1 K/mm3 (0.0-0.8) H 06/10/22 04:30 Eos # (Auto) 0.0 K/mm3 (0.0-0.4) 06/10/22 04:30 Baso # (Auto) 0.0 K/mm3 (0.0-0.1) 06/10/22 04:30 Seg Neutrophils % 87.6 % (40.0-70.0) H 06/10/22 04:30 Seg Neutrophils # 11.2 K/mm3 (1.8-7.7) H 06/10/22 04:30 PT 12.8 Sec. (12.2-14.9) 06/09/22 15:00 INR 0.85 (0.87-1.13) L 06/09/22 15:00 APTT 26.8 Sec. (24.2-36.6) 06/09/22 15:00 Thrombin Time 16.6 Sec. (15.1-19.6) 06/09/22 15:00 ABG pH 7.449 pH Units (7.350-7.450) 06/09/22 18:00 ABG pCO2 43.5 mm Hg 06/09/22 18:00 ABG pO2 508.9 mm Hg (80.0-90.0) H 06/09/22 18:00 ABG HCO3 29.5 mmol/L (20.0-26.0) H 06/09/22 18:00 ABG O2 Saturation 99.6 % (95.0-99.0) H 06/09/22 18:00 ABG O2 Content 19.3 (0.0-44) 06/09/22 18:00 ABG Base Excess 4.9 mmol/L (-2.0-3.0) H 06/09/22 18:00 ABG Hemoglobin 12.9 gm/dl (14.0-18.0) L 06/09/22 18:00 ABG Carboxyhemoglobin 0.9 % (0.0-5.0) 06/09/22 18:00 ABG Methemoglobin 0.6 % (0.0-1.5) 06/09/22 18:00 Oxyhemoglobin 98.2 % (95.0-99.0) 06/09/22 18:00 FiO2 100 % 06/09/22 18:00 Sodium 144 mmol/L (137-145) 06/10/22 04:30 Potassium 4.4 mmol/L (3.6-5.0) D 06/10/22 04:30 Chloride 102.4 mmol/L (98-107) 06/10/22 04:30 Carbon Dioxide 26 mmol/L (22-30) 06/10/22 04:30 Anion Gap 20 mmol/L 06/10/22 04:30 BUN 30 mg/dL (9-20) H 06/10/22 04:30 Creatinine 2.2 mg/dL (0.8-1.3) H 06/10/22 04:30 Estimated GFR 35 ml/min 06/10/22 04:30 BUN/Creatinine Ratio 14 % 06/10/22 04:30 Glucose 193 mg/dL (75-100) H 06/10/22 04:30 POC Glucose 197 mg/dL (70-105) H 06/10/22 06:18 Calcium 9.4 mg/dL (8.4-10.2) 06/10/22 04:30 Total Bilirubin 0.60 mg/dL (0.1-1.2) 06/10/22 04:30 AST 33 units/L (5-40) 06/10/22 04:30 ALT 11 units/L (7-56) 06/10/22 04:30 Alkaline Phosphatase 86 units/L (35-129) 06/10/22 04:30 Total Creatine Kinase 168 units/L (55-170) 06/09/22 15:00 CK-MB (CK-2) 3.3 ng/mL (0.0-4.0) 06/09/22 15:00 CK-MB (CK-2) Rel Index 1.9 (0-4) 06/09/22 15:00 Troponin T 0.035 ng/mL (0.00-0.029) H 06/09/22 15:00 Total Protein 7.2 g/dL (6.3-8.2) 06/10/22 04:30 Albumin 4.0 g/dL (3.9-5) 06/10/22 04:30 Albumin/Globulin Ratio 1.3 % 06/10/22 04:30 Triglycerides 115 mg/dL (2-149) 06/09/22 15:00 Cholesterol 247 mg/dL (50-199) H 06/09/22 15:00 LDL Cholesterol Direct 172 mg/dL (50-130) H 06/09/22 15:00 HDL Cholesterol 63 mg/dL (40-59) H 06/09/22 15:00 Cholesterol/HDL Ratio 3.92 % 06/09/22 15:00 Blood Type A POSITIVE 06/09/22 15:13 Active Medications - Current Medications Current Medications: Generic Name Dose Route Start Last Admin Trade Name Freq PRN Reason Stop Dose Admin Acetaminophen 650 mg 06/09/22 21:01 Acetaminophen 325 Mg Tab PO Q4H PRN Pain MILD(1-3)/Fever >100.5/MOTA Famotidine 10 mg 06/09/22 22:00 06/10/22 09:22 Famotidine 20 Mg/2 Ml Inj IV 10 mg BID MERLENE Administration Hydromorphone HCl 0.5 mg 06/09/22 21:01 Hydromorphone 0.5 Mg/0.5 Ml Inj IV Q3H PRN Pain , Severe (7-10) Dextrose/Sodium Chloride 1,000 mls @ 100 mls/hr 06/09/22 22:00 06/10/22 10:50 D5/0.45ns IV 100 mls/hr DIRECT MERLENE Administration Nicardipine HCl 50 mg/ Sodium 250 mls @ 25 mls/hr 06/10/22 02:20 06/10/22 10:16 Chloride IV 15 mg/hr TITR MERLENE 75 mls/hr Administration Protocol 5 MG/HR Insulin Human Regular 0 units 06/10/22 06:00 06/10/22 06:24 Insulin Regular, Human 100 Units/1 Ml SUB-Q 2 units Q6H MERLENE Administration Protocol Metoclopramide HCl 5 mg 06/09/22 21:15 Metoclopramide 10 Mg/2 Ml Inj IV Q6H PRN Nausea And Vomiting Morphine Sulfate 2 mg 06/09/22 21:01 Morphine 2 Mg/1 Ml Inj IV Q4H PRN Pain, Moderate (4-6) Ondansetron HCl 4 mg 06/09/22 21:01 Ondansetron 4 Mg/2 Ml Inj IV Q8H PRN Nausea And Vomiting Sodium Chloride 10 ml 06/09/22 22:00 06/10/22 09:23 Sodium Chloride 0.9% 10 Ml Flush Syringe IV 10 ml BID MERLENE Administration Sodium Chloride 10 ml 06/09/22 21:01 Sodium Chloride 0.9% 10 Ml Flush Syringe IV PRN PRN LINE FLUSH Nutrition/Malnutrition Assess - Dietary Evaluation Nutrition/Malnutrition Findings: Nutrition Notes Start: 06/10/22 10:33 Freq: Status: Active Protocol: Document 06/10/22 10:33 ANTONIO (Rec: 06/10/22 10:42 ANTONIO [id number]) Nutrition Notes Need for Assessment generated from: MD Order Initial or Follow up Assessment Current Diagnosis Acute Kidney Injury,Coronary Artery Disease,Hypertension, Stroke,Hyperlipidemia Other Pertinent Diagnosis Acute ICH, Hypertensive emergency Current Diet NPO Labs/Tests BUN 30 Cr 2.2 BG 193 Pertinent Medications D5 1/2NS at 100ml/hr, Nicardipine gtt Height 5 ft 7 in Weight 68.039 kg [place] Body Weight (kg) 67.27 BMI 23.5 Weight Status Appropriate Subjective/Other Information RD consulted for TF. Pt currently intubated; per MD note on yesterday, pt may be extubated today per family wishes. Burn Absent Trauma Absent Food Allergy No Skin Integrity/Comment No skin breakdown reported Minimum of two criteria No #1 Nutrition Diagnosis Inadequate oral intake Etiology mech ventilation As Evidenced by Signs and Symptoms pt NPO Is patient on ventilator? Yes Is Patient Ambulatory and/or Out of Bed No REE-([facility]-confined to bed) 1631.483 Calculation Used for Recommendations [facility] Additional Notes Pro needs 0.8-1.2g/k-82g/ day Fluid needs 1ml/kcal Nutrition Intervention Nutrition Support: Osmolite 1.5 at 45ml/hr with 150ml water flush q4h. Kcal 1,620 Protein (gm) 68 Carbohydrates (gm) 220 Fat (gm) 53 Fluid (mL) 823 Fiber (gm) 0 Goal #1 TF tolerance Goal #2 TF to provide at least 75% energy and pro needs Anticipated Discharge Needs: Continue EN support if necessary Follow-Up By: 06/12/22 Additional Comments F/U: TF start/tolerance, vent status, BG/renal labs
--- NOTE | 2022-06-10 13:06 | Electrocardiograph Report ---
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
--- NOTE | 2022-06-10 14:02 | Consultation ---
History of Present Illness Consult date: 06/10/22 Requesting physician: DARLENE SALCIDO Reason for consult: other History of present illness: 81 y/o male found to have massive intracranial hemorrhage, intubated in the ED for airway protection. Based up on records as no family is here, patient is admitted for hospice placement. The plan was for withdrawal today but now I am told that more family are coming in and family does not want to withdraw. Past History Past Medical History: other (unable to obtain) Past Surgical History: Other (unable to obtain) Social history: other (unable to obtain) Family history: other (unable to obtain) Medications and Allergies Allergies Allergy/AdvReac Type Severity Reaction Status Date / Time No Known Allergies Allergy Verified 04/27/17 19:49 Home Medications Medication Instructions Recorded Confirmed Last Taken Type Aspirin [Aspirin BABY CHEW TAB] 81 mg PO QDAY 07/05/13 04/28/17 1 Day Ago History ~04/27/17 Atorvastatin [Lipitor] 80 mg PO QHS 07/05/13 04/28/17 1 Day Ago History ~04/27/17 Furosemide [Lasix] 20 mg PO DAILY 07/05/13 04/28/17 1 Day Ago History ~04/27/17 Isosorbide Mononitrate [Isosorbide 60 mg PO DAILY 07/05/13 04/28/17 1 Day Ago History Mononitrate ER (IMDUR)] ~04/27/17 Losartan [Cozaar] 100 mg PO QDAY 07/05/13 04/28/17 1 Day Ago History ~04/27/17 Niacin [Niaspan] 500 mg PO DAILY 07/05/13 04/28/17 1 Day Ago History ~04/27/17 amLODIPine 10 mg PO DAILY 07/05/13 04/28/17 2 Days Ago History ~04/26/17 Clopidogrel [Plavix] 75 mg PO QDAY 02/03/14 04/28/17 1 Day Ago History ~04/27/17 Budesonide [Pulmicort Respules] 0.5 mg IH Q12HRT #60 nebu 02/09/14 04/28/17 1 Day Ago Rx ~04/27/17 Famotidine [Pepcid] 40 mg PO QHS #30 tablet 02/09/14 04/28/17 1 Day Ago Rx ~04/27/17 Ipratropium/Albuterol Sulfate 1 ampul IH Q6HRT #100 ampul.neb 02/09/14 04/28/17 1 Day Ago Rx [DUONEB *Not for PRN Use*] ~04/27/17 Potassium Chloride 10 meq PO QDAY #30 capsule.er 02/09/14 04/28/17 1 Day Ago Rx ~04/27/17 cloNIDine [Catapres] 0.1 mg PO BID #60 tablet 02/09/14 04/28/17 2 Days Ago Rx ~04/26/17 traMADoL [Ultram 50 MG tab] 50 mg PO Q6H PRN #10 tablet 04/29/17 Unknown Rx Active Meds: Active Medications Acetaminophen (Acetaminophen 325 Mg Tab) 650 mg PO Q4H PRN PRN Reason: Pain MILD(1-3)/Fever >100.5/MOTA Famotidine (Famotidine 20 Mg/2 Ml Inj) 10 mg IV BID MERLENE Last Admin: 06/10/22 09:22 Dose: 10 mg Hydromorphone HCl (Hydromorphone 0.5 Mg/0.5 Ml Inj) 0.5 mg IV Q3H PRN PRN Reason: Pain , Severe (7-10) Nicardipine HCl 50 mg/ Sodium (Chloride) 250 mls @ 25 mls/hr IV TITR MERLENE; Prot ocol Last Admin: 06/10/22 13:40 Dose: 15 mg/hr, 75 mls/hr Insulin Human Regular (Insulin Regular, Human 100 Units/1 Ml) 0 units SUB-Q Q6H MERLENE; Protocol Last Admin: 06/10/22 12:13 Dose: 2 units Metoclopramide HCl (Metoclopramide 10 Mg/2 Ml Inj) 5 mg IV Q6H PRN PRN Reason: Nausea And Vomiting Morphine Sulfate (Morphine 2 Mg/1 Ml Inj) 2 mg IV Q4H PRN PRN Reason: Pain, Moderate (4-6) Ondansetron HCl (Ondansetron 4 Mg/2 Ml Inj) 4 mg IV Q8H PRN PRN Reason: Nausea And Vomiting Sodium Chloride (Sodium Chloride 0.9% 10 Ml Flush Syringe) 10 ml IV BID MERLENE Last Admin: 06/10/22 09:23 Dose: 10 ml Sodium Chloride (Sodium Chloride 0.9% 10 Ml Flush Syringe) 10 ml IV PRN PRN PRN Reason: LINE FLUSH Review of Systems ROS unobtainable: due to endotracheal tube, due to mental status Physical Examination Vital signs: Vital Signs Pulse Resp BP Pulse Ox 64 8 L 211/109 96 06/09/22 13:53 06/09/22 13:53 06/09/22 13:53 06/09/22 13:53 Results - Laboratory Findings CBC and BMP: 06/10/22 04:30 06/10/22 04:30 ABG ABG pH 7.449 pH Units (7.350-7.450) 06/09/22 18:00 ABG pCO2 43.5 mm Hg 06/09/22 18:00 ABG pO2 508.9 mm Hg (80.0-90.0) H 06/09/22 18:00 ABG O2 Saturation 99.6 % (95.0-99.0) H 06/09/22 18:00 PT/INR, D-dimer PT 12.8 Sec. (12.2-14.9) 06/09/22 15:00 INR 0.85 (0.87-1.13) L 06/09/22 15:00 Abnormal lab findings: Abnormal Labs 06/09/22 06/09/22 06/09/22 15:00 15:00 15:00 WBC Lymph % (Auto) 8.7 L [place] % (Auto) Lymph # (Auto) 0.8 L [place] # (Auto) Seg Neutrophils % 81.8 H Seg Neutrophils # INR 0.85 L ABG pO2 ABG HCO3 ABG O2 Saturation ABG Base Excess ABG Hemoglobin Potassium 3.3 L BUN 27 H Creatinine 1.9 H Glucose 114 H POC Glucose Troponin T 0.035 H Cholesterol 247 H LDL Cholesterol Direct 172 H HDL Cholesterol 63 H 06/09/22 06/10/22 06/10/22 18:00 04:30 04:30 WBC 12.8 H Lymph % (Auto) 3.2 L [place] % (Auto) 9.0 H Lymph # (Auto) 0.4 L [place] # (Auto) 1.1 H Seg Neutrophils % 87.6 H Seg Neutrophils # 11.2 H INR ABG pO2 508.9 H ABG HCO3 29.5 H ABG O2 Saturation 99.6 H ABG Base Excess 4.9 H ABG Hemoglobin 12.9 L Potassium BUN 30 H Creatinine 2.2 H Glucose 193 H POC Glucose Troponin T Cholesterol LDL Cholesterol Direct HDL Cholesterol 06/10/22 06:18 WBC Lymph % (Auto) [place] % (Auto) Lymph # (Auto) [place] # (Auto) Seg Neutrophils % Seg Neutrophils # INR ABG pO2 ABG HCO3 ABG O2 Saturation ABG Base Excess ABG Hemoglobin Potassium BUN Creatinine Glucose POC Glucose 197 H Troponin T Cholesterol LDL Cholesterol Direct HDL Cholesterol - Diagnostic Findings Additional studies: reviewed images and report of cT of head Assessment and Plan 81 y/o male with massive intracranial hemorrhage, not a candidate for any intervention 1. Patient should have been withdrawn on yesterday 2. Agree with hospice if family in agreement for this 3. Continue supportive measures for now. CCT 31 minutes.
--- NOTE | 2022-06-10 14:09 | XRay Report ---
ABDOMEN 1 VIEW(S) INDICATION / CLINICAL INFORMATION: feeding tube placement. COMPARISON: None available. FINDINGS: TUBES / LINES: The sidehole in distal tip of the nasogastric tube terminates in the mid stomach. BOWEL GAS PATTERN: No significant abnormality. FREE AIR / EXTRALUMINAL GAS: None seen. ADDITIONAL FINDINGS: IVC filter is in place at the level of L3. Aortobiiliac stent is also present. IMPRESSION: No significant abnormality. Adequate placement of the nasogastric tube. Signer Name: Obdulio Pacheco Jr, MD Signed: 06/10/2022 2:05 PM Workstation Name: [id number]
[2022-06-10] MEDS: hydrALAZINE 25 MG TAB FEEDTUBE SCH (23:05)
[2022-06-11] MEDS: INSULIN REGULAR, HUMAN 100 UNITS/1 ML SUB-Q SCH ×2 (00:06→05:30)
[2022-06-11] MEDS ORDERED: NORepinephrine/NS 8 MG-250 ML 8 MG/250 ML INFUS..BTL IV ONE (03:07)
[2022-06-11] MEDS: NORepinephrine/NS 8 MG-250 ML 8 MG/250 ML INFUS..BTL IV SCH ×2 (03:10→08:13)
[2022-06-11 04:39] LABS: ABG Base Excess 0.7 mmol/L (-2.0-3.0); ABG HCO3 24.9 mmol/L (20.0-26.0); ABG Methemoglobin 0.7 % (0.0-1.5); ABG Oxygen Saturation 98.7 % (95.0-99.0); ABG PCO2 38.1 mm Hg; ABG PH 7.433 pH Units (7.350-7.450); ABG PO2 140.4 mm Hg (80.0-90.0)
[2022-06-11 04:46] LABS: Hematocrit 34.7 % (35.5-45.6); Hemoglobin 11.4 gm/dl (11.8-15.2); Mean Corpuscular HGB Conc 33 % (32-34); Mean Corpuscular Volume 94 fl (84-94); Platelet Count 140 K/mm3 (140-440); Red Cell Distribution Width 15.8 % (13.2-15.2)
[2022-06-11 05:07] LABS: Calcium 8.9 mg/dL (8.4-10.2)
[2022-06-11] MEDS: hydrALAZINE 25 MG TAB FEEDTUBE SCH (06:08)
[2022-06-11] MEDS ORDERED: GLYCOPYRROLATE 0.4 MG/2 ML INJ IV PRN (09:34)
[2022-06-11] MEDS ORDERED: LORazepam 2 MG/ML VIAL IV PRN ×2 (09:34)
[2022-06-11] MEDS ORDERED: diphenhydrAMINE 50 MG/ML VIAL IV PRN (09:34)
[2022-06-11] MEDS ORDERED: MORPHINE 2 MG/1 ML INJ IV PRN ×2 (09:34)
--- NOTE | 2022-06-11 11:46 | Death Note ---
Note Date of : 06/11/22 Time of : 11:03 Time Pronounced: 11:05 - Preliminary Cause of (problem) (1) Acute intracerebral hemorrhage Preliminary cause of (2) Hypertensive emergency Preliminary cause of (3) Coronary artery disease Qualifiers: Coronary Disease-Associated Artery/Lesion type: bypass graft [place] vs. transplanted heart: [place] heart Preliminary cause of (4) Acute respiratory failure with hypoxia Preliminary cause of
--- NOTE | 2022-06-11 12:52 | Death Summary ---
Summary - Providers Date of service: 06/11/22 Consults: 06/09/22 21:01 Consult to Physician [CONS] Routine Comment: Consulting Provider: YIN SALDIVAR Physician Instructions: Reason For Exam: Intracerebral hemorrhage 06/10/22 08:34 Consult to Dietitian/Nutrition [CONS] Routine Physician Instructions: Reason For Exam: Reason for Consult: Write/Manage Tube Feeding Attending: MADYSON ADAMS MD - summary Date of admission: 06/09/22 21:01 Date of : 06/11/22
[2022-06-11 18:39] VITALS: BP 99/58
== END 2022-06-11 11:03 | DRG 64 ==
LOC: ED 13:47 → CC1 21:01
PROVIDERS: ADMIT Internal Medicine; ATTEND Internal Medicine
PROC: 5A1945Z Respiratory Ventilation, 24-96 Consecutive Hours (ICD-10-PCS; principal; 2022-06-09)
PROC: 0BH17EZ Insertion of Endotracheal Airway into Trachea, Via Natural or Artificial Opening (ICD-10-PCS; 2022-06-09)
PROC: 4A033R1 Measurement of Arterial Saturation, Peripheral, Percutaneous Approach (ICD-10-PCS; 2022-06-11)
PROC: 5A09357 Assistance with Respiratory Ventilation, Less than 24 Consecutive Hours, Continuous Positive Airway Pressure (ICD-10-PCS; 2022-06-11)
DX: I61.5 Nontraumatic intracerebral hemorrhage, intraventricular (principal); J96.01 Acute respiratory failure with hypoxia; N17.0 Acute kidney failure with tubular necrosis; I16.1 Hypertensive emergency; I25.10 Atherosclerotic heart disease of native coronary artery without angina pectoris; M19.90 Unspecified osteoarthritis, unspecified site; I11.0 Hypertensive heart disease with heart failure; I50.9 Heart failure, unspecified; E78.2 Mixed hyperlipidemia; Z90.49 Acquired absence of other specified parts of digestive tract; I25.2 Old myocardial infarction; Z86.73 Personal history of transient ischemic attack (TIA), and cerebral infarction without residual deficits; Z79.899 Other long term (current) drug therapy; Z79.82 Long term (current) use of aspirin; Z87.891 Personal history of nicotine dependence
CPT/HCPCS: 31500; 36415; 36600; 70450; 71045; 74018; 80048; 80053; 80061; 82550; 82553; 82803; 82962; 84484; 85025; 85027; 85610; 85670; 85730; 86900; 86901; 93005; 94002; 94003; 99291; G0378; J1815; J2354; J3490; J7070; Q9967; J2060; J2150; J2270; J7050